=== PATIENT | female | born 2000 | race Caucasian/White ===

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

== ENCOUNTER 2022-10-14 19:25 | Emergency (ER) | payer OTHER, MEDICAID, SELFPAY ==
[2022-10-14 19:36] VITALS: BP 121/72; PULSE 97; RESP 15; TEMP 36.7; O2SAT 98; BMI 21.7
[2022-10-14 21:35] VITALS: PULSE 95; O2SAT 99
[2022-10-14 21:36] VITALS: BP 112/68; PULSE 95; O2SAT 99
[2022-10-14 22:00] VITALS: BP 98/56; PULSE 75; O2SAT 98
--- NOTE | 2022-10-14 22:13 | ED_ITS ---
HPI - General Adult General Chief complaint: Abdominal Pain Stated complaint: lower abd pain moving to back Time Seen by Provider: 10/14/22 21:27 Source: patient Mode of arrival: Ambulatory Limitations: no limitations History of Present Illness HPI narrative: Patient is a 22-year-old female who is here for evaluation of approximately 5 days of persistently worsening lower abdominal pain that at 1 point was radiat ing to her back. She actually has had this pain off and on for the past several weeks/months. It has just become more frequent recently. She denies any urinary symptoms. Has not had a menstrual cycle in the past several months. She is not on control. She does have a history of endometriosis. No prior abdominal surgeries. No change in bowel habits. She has had some nausea but no vomiting. Related Data Allergies Allergy/AdvReac Type Severity Reaction Status Date / Time No Known Drug Allergies Allergy Verified 10/14/22 19:36 Review of Systems Constitutional Constitutional: Reports system reviewed and no additional complaints, except as documented Gastrointestinal Gastrointestinal: Reports system reviewed and no additional complaints, except as documented Genitourinary Genitourinary: Reports system reviewed and no additional complaints, except as documented Integumentary/Breasts Skin/Breast: Reports system reviewed and no additional complaints, except as documented Patient History Medical History Healthy adult Social History lives independently: Yes Smoking Status: Unknown if ever smoked Smoking Status: Unknown if ever smoked alcohol intake frequency: holidays/special occasions only Substance Use Type: marijuana Exam Initial Vital Signs Initial Vital Signs: Vital Signs Temperature 98.1 F 10/14/22 19:36 Pulse Rate 97 H 10/14/22 19:36 Respiratory Rate 15 10/14/22 19:36 Blood Pressure 121/72 10/14/22 19:36 Pulse Oximetry 98 10/14/22 19:36 Oxygen Delivery Method 10/14/22 19:36 [facility] Head: normal to inspection and normocephalic Cardio Rate: regular rate GI Inspection: normal to inspection and non-distended Palpation: tender (Lower abdomen) Back/Spine/Pelvis Back: No CVA tenderness Extrem General: normal to inspection Course Orders Ordered: Discontinued Medications Ketorolac Tromethamine (Ketorolac 30 Mg/Ml Vial) 30 mg IM NOW ONE Stop: 10/14/22 22:23 Last Admin: 10/14/22 22:29 Dose: 30 mg Documented By: HERMANN Vital Signs Vital signs: Vital Signs - 8 hr 10/14/22 19:36 10/14/22 21:35 10/14/22 21:36 Temperature 98.1 F Pulse Rate 97 H 95 H 95 H Respiratory Rate 15 Blood Pressure 121/72 Pulse Oximetry 98 99 99 Oxygen Delivery Method Room Air Room Air Room Air 10/14/22 21:36 10/14/22 22:00 10/14/22 22:00 Temperature Pulse Rate 75 Respiratory Rate Blood Pressure 112/68 98/56 L Pulse Oximetry 98 Oxygen Delivery Method Room Air Medical Decision Making Differential Diagnosis Differential Diagnosis: Appendicitis, endometriosis, UTI, pyelo, , diverticulitis, bowel o Chronic Condition is having:: Mild excerbation Condition is at treatment goal?: Yes Lab Data Lab results reviewed: Yes I reviewed the patient's lab results. Labs: Point of Care Testing Test Results Negative Urine Dip Bedside Urine Glucose Negative Bedside Urine Bilirubin - Negative Bedside Urine Ketone - Negative Urine Specific [place] 1.010 Bedside Urine Occult Blood - Negative Bedside Urine pH 7.0 Bedside Urine Protein - Negative Bedside Urine Urobilinogen - Negative Bedside Urine Nitrite - Negative Bedside Urine Leukocytes - Negative Esterase Point of care testing: Point of Care Testing Test Results Negative Urine Dip Bedside Urine Glucose Negative Bedside Urine Bilirubin - Negative Bedside Urine Ketone - Negative Urine Specific [place] 1.010 Bedside Urine Occult Blood - Negative Bedside Urine pH 7.0 Bedside Urine Protein - Negative Bedside Urine Urobilinogen - Negative Bedside Urine Nitrite - Negative Bedside Urine Leukocytes - Negative Esterase [facility] Narrative Medical decision making narrative: Urinalysis shows no signs of infection. Low suspicion for pyelo. She does have a history of endometriosis. She has had the discomfort that she came in with today off and on for the past several months has just been worse over the past couple days. Her test is negative. She is not on control. No vaginal bleeding. She does have lower abdominal tenderness. Considered acute intra-abdominal surgical pathology to include appendicitis however her presenting symptoms are not consistent with this. Would not suspect appendicitis to be off and on for months. I do not feel that a CT scan is warranted today. I did offer to start her on control to see if this would help the endometriosis since she declined. She was given a shot of Toradol. Advised that she contact OB to discuss further evaluation treatment of her endometriosis. Discharge Plan Departure Patient Disposition: Home Clinical Impression: Abdominal pain, Endometriosis Instructions: DI for Endometriosis, DI for Abdominal Pain-Adult Activity Restrictions/Additional Instructions: I recommend that you contact an OB provider for a follow-up. You can contact them if you wish. It is also important that you follow-up with a primary doctor. Endometriosis most of the time response to anti-inflammatories. Return to the emergency department for new symptoms. Referrals: Debra Jones MD [Physician] - Stand Alone Forms: Patient Portal/API
[2022-10-14] MEDS: KETOROLAC 30 MG/ML VIAL IM (22:29)
== END 2022-10-14 22:39 | disposition home or self-care (01) ==
PROVIDERS: Emergency Provider Emergency Medicine
DX: R10.30 Lower abdominal pain, unspecified (principal); N80.9 Endometriosis, unspecified
CPT/HCPCS: 81003; 81025; 96372; 99283; J1885

== ENCOUNTER → 2022-10-27 10:52 | Outpatient (CLI) | payer OTHER, MEDICAID, SELFPAY ==
[2022-10-27 14:42] LABS: Urine N gonorrhoeae NOT DETECTED
[2022-10-27 14:43] LABS: Urine Chlamydia NOT DETECTED
== END ==
PROVIDERS: Visit Provider Obstetrics & Gynecology
DX: R10.9 Unspecified abdominal pain (principal); Z11.3 Encounter for screening for infections with a predominantly sexual mode of transmission
CPT/HCPCS: 87491; 87591

== ENCOUNTER → 2022-10-27 16:10 | Outpatient (CLI) | payer OTHER, MEDICAID, SELFPAY ==
--- NOTE | 2022-10-27 16:11 | DI.US.S_ITS ---
PROCEDURE: US PELVIC COMPLETE INDICATIONS: LLQ Pelvic Pain TECHNIQUE: Real-time scanning was performed of the pelvic organs, with image documentation. Additional endovaginal scanning was necessary due to incomplete visualization of the adnexal and endometrial structures by transabdominal scanning. COMPARISON: None. FINDINGS: The uterine body measures 6.4 x 3.2 x 4.1 centimeters. Normal endometrial thickness. No uterine mass. Normal size and appearance of both ovaries. No ovarian or adnexal mass. Several physiologic/follicular subcentimeter cysts present in both ovaries. Physiologic free fluid in the cul-de-sac. IMPRESSION: Normal study. We strive to produce accurate, complete, and clear reports of imaging services. To assist us in improving patient care, this report was composed using standard report templates and voice recognition software. Therefore, it may contain abnormal punctuation, insertions and/or omissions. Occasional wrong-word or sound-alike substitutions may occur. Though we review the report and make efforts to correct it, we do recommend that the report be read carefully in proper context to recognize any text inaccuracies. Dictated by: Haim Walker M.D. on 10/29/2022 at 9:09 Approved by: Haim Walker M.D. on 10/29/2022 at 9:14
== END ==
PROVIDERS: Referring Provider Obstetrics & Gynecology; Visit Provider Obstetrics & Gynecology
DX: N91.2 Amenorrhea, unspecified (principal); R10.2 Pelvic and perineal pain; R10.9 Unspecified abdominal pain; Z11.3 Encounter for screening for infections with a predominantly sexual mode of transmission; Z32.02 Encounter for pregnancy test, result negative
CPT/HCPCS: 76830; 76856; 81025; 87491; 87591

== ENCOUNTER → 2022-11-19 16:58 | Outpatient (CLI) | payer OTHER, MEDICAID, SELFPAY ==
[2022-11-24 04:12] LABS: Chlamydia trachomatis Negative (Negative); Mycoplasma genitalium Negative (Negative); Neisseria gonorrhoeae Negative (Negative)
== END ==
PROVIDERS: Visit Provider Obstetrics & Gynecology
DX: Z11.3 Encounter for screening for infections with a predominantly sexual mode of transmission (principal)
CPT/HCPCS: 87491; 87563; 87591

== ENCOUNTER → 2022-11-19 17:12 | Outpatient (CLI) | payer OTHER, MEDICAID, SELFPAY ==
[2022-11-19 18:13] LABS: Add Manual Diff / Slide Review NO; Basophils Absolute Auto 0 /uL (0-100); Basophils Percent Auto 0.3 % (0-2); Eosinophils Absolute Auto 0 /uL (0-450); Eosinophils Percent Auto 0.3 % (2-4); Hematocrit 37.9 % (36-46); Hemoglobin 12.5 g/dL (12.0-16.0); Lymphocytes Absolute Auto 2100 /uL (1100-4500); Mean Corpuscular HGB Conc 33.1 % (30-36); Mean Corpuscular Hemoglobin 27.3 PG (26-34); Mean Corpuscular Volume 82.5 fL (80-100); Monocytes Absolute Auto 600 /uL (0-900); Monocytes Percent Auto 6.9 % (3-14); Neutrophils Absolute Auto 6100 /uL (1500-7000); Neutrophils Percent Auto 68.5 % (50-75); Platelet Count 323 X10^3/uL (150-400); Red Blood Cell Count 4.59 X10^6/uL (4.0-5.2); Red Cell Distribution Width 14.6 % (11.6-14.8); White Blood Cell Count 8.9 X10^3/uL (4.5-11.0)
[2022-11-19 20:33] LABS: Erythrocyte Sedimentation Rate 1 MM/HR (0-20)
== END ==
PROVIDERS: Referring Provider Obstetrics & Gynecology; Visit Provider Obstetrics & Gynecology
DX: R10.2 Pelvic and perineal pain (principal); Z11.3 Encounter for screening for infections with a predominantly sexual mode of transmission
CPT/HCPCS: 36415; 85025; 85651; 87491; 87563; 87591

== ENCOUNTER 2022-12-10 06:45 | Day surgery (SDC) | payer OTHER, MEDICAID, SELFPAY ==
[2022-12-02 12:15] VITALS: BMI 21.1
[2022-12-10 07:10] VITALS: BP 115/64; PULSE 96; RESP 16; TEMP 36.9; O2SAT 100; BMI 46.0
[2022-12-10] MEDS: SCOPOLAMINE 1 PATCH TOP (07:19)
[2022-12-10] MEDS: LACTATED RINGERS 1,000 ML 42 ML IV (07:20)
[2022-12-10] MEDS: ACETAMINOPHEN IV 1,000 MG/100 ML VIAL 400 MG IV (07:20)
--- NOTE | 2022-12-10 07:40 | PM.PREOP ---
Pre-operative Note COVID-19 COVID-19 status: Not tested Criteria for continued procedure: Non-surgical alternatives not available or appropriate per current SOC Interval Note History & Physical reviewed/Exam performed by Physician: Yes Changes to H&P: No
--- NOTE | 2022-12-10 08:27 | SUR.OPER ---
Lithotomy on padded OR bed, head on pillow, arms secured on padded arm boards at <90 degrees abduction. Legs secured in padded yellow fins stirrups.
[2022-12-10] MEDS: BUPIVACAINE 0.25% (PF) 30 ML, EPINEPHrine 0.15 MG INJ (08:37)
[2022-12-10 08:59] VITALS: BP 131/53; PULSE 77; RESP 19; TEMP 36.5; O2SAT 100
[2022-12-10] MEDS: OXYCODONE IR 5 MG TABLET PO (09:04)
[2022-12-10] MEDS: ONDANSETRON 4 MG/2 ML INJ IV (09:04)
[2022-12-10 09:11] VITALS: BP 114/66; PULSE 69; RESP 11; O2SAT 99
--- NOTE | 2022-12-10 09:12 | PM.GYNOP.1 ---
Operative Date/Time/Diagnoses Date of procedure: 12/10/22 Time of procedure: 08:05 Pre-op diagnosis: Chronic pelvic pain Post-op diagnosis: other (Same as above; Normal pelvis) Procedure & Clinicians Procedure: Procedures Operation Date: 12/10/22 07:45 Actual Procedure Side Surgeon chase [id number] Laparoscopy Not Applicable Jamil Floyd MD Indications: Leeann is a 22-year-old G0, LMP August 03, 2022, who presents today for evaluation of a three-month history of right lower quadrant/right sided pelvic pain.? Menarche occurred at age 14 and in general she is had regular periods throughout her reproductive life thus far.? She is sexually active but does not currently use contraception.? She was on control pills up until June of 2022 when she discontinued them and had her final withdrawal period.? She had another period on August 03 2022 but has not had any bleeding since that time.? Serial tests have been negative.? Patient has been having sharp constant right lower quadrant/right sided pelvic pain for the last 3 months and is only obtained relief by taking hydrocodone which she has received from her ER visits and also from her mother.? Pain is constant with a dull component and then exacerbations which are sharp.? These do not appear to be related to her menses but she has a long history of primary dysmenorrhea.? Her symptoms are worsened with prolonged sitting or prolonged standing, or prolonged episodes of walking.? She has no GI or complaints.? Pain is always in the same spot but can radiate down the anterior aspect of her right thigh.? She states her dysmenorrhea has gradually increased over the years and she does have both introital and deep dyspareunia on occasion patient states that she is lost about 13 lb since February 2022.? Recent pelvic imaging thus far includes a pelvic ultrasound at [facility] on 10/27/2022 which showed: FINDINGS:? ?? The uterine body measures 6.4 x 3.2 x 4.1 centimeters.? Normal endometrial thickness.? No uterine mass.? Normal size and appearance of both ovaries.? No ovarian or adnexal mass.? Several physiologic/follicular subcentimeter cysts present in both ovaries.? Physiologic free fluid in the cul-de-sac.? ? IMPRESSION:? Normal study. Abdominopelvic CT performed at [facility] on 11/08/2022 showed previously noted small calcified gallstones in the gallbladder lumen without evidence of biliary obstruction or acute cholecystitis.? No other abnormalities were seen.? Pelvic ultrasound performed at that same ED visit showed the uterus to be normal in size at 2.9 x 4.2 x 6.4 cm.? The endometrium measures 6.6 mm in combined thickness.? The right ovary measures 1.9 x 4.1 x 4.0 cm and the left measures 3.5 by 3.0 x 3.5 cm.? No dominant cyst is seen in either ovary.? Normal-appearing arterial and venous waveforms are confirmed to each ovary.? Incidental note is made of a small left paraovarian cyst at the left adnexa. The nature the patient's pelvic pain is unclear at this point.? Her long history of primary dysmenorrhea is concerning for the possibility of an previously undiagnosed endometriosis with a right lower quadrant pain she is experiencing does not appear to be cyclic.? She does however have history of deep dyspareunia which is also concerning.? We discussed potential causes for her pelvic pain and methods of evaluating/treating those different possibilities.? A CBC and ESR obtained and are both normal.? After discussing all options, the patient wishes to proceed with diagnostic laparoscopy to evaluate for possible endometriosis and/or other potential causes of right lower quadrant/pelvic pain.? She presents today for preoperative evaluation, counseling, and consent. Surgeon: Jamil Floyd Anesthesia Type: General Operative Notes Findings: The anterior cul-de-sac is unremarkable with no scarring or endometrial implants noted. The uterus is normal in size and shape and retroverted. 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 The right tube and ovary were also normal in all respects. The ovarian fossas on both sides are free of adhesions or evidence of endometrial implants. The posterior cul-de-sac is also free of scarring or endometrial implants with only a small amount of physiologic peritoneal fluid present there. The cecum is mobile and the appendix is normal in all respects with no scarring, areas of thickening, mass or endometrial implants. Both gutters were visualized and there was peritoneal no abnormality present. The gallbladder appears to be normal as does the liver edge of both the left and right lobe. The diaphragms are also unremarkable. Closure Type: primary Specimen(s): none Estimated blood loss (mL): 0 Blood products transfused: none Procedure in detail: With the patient under satisfactory general anesthesia in the modified dorsal lithotomy position, the perineum, vagina, and abdomen were prepped and draped in the usual manner for laparoscopy. A pre-surgical safety time-out was then taken in accordance with [facility] OR protocols. A bivalve speculum was inserted in the vagina and a Zumi manipulator inserted into the endometrial cavity for uterine manipulation. The umbilicus was infiltrated with 0.5% Marcaine with epinephrine and a 1 cm transverse incision was made. A Veress needle was then used to insufflate the abdominal cavity with carbon dioxide and once insufflated a 5 mm trocar and sleeve were introduced through the umbilical incision. The presence of the sleeve in the abdominal cavity was confirmed laparoscopically and a 2nd and 3rd 5 mm port were placed in the left and right mid quadrants respectively. Using a 3 puncture technique the pelvis and abdomen were thoroughly inspected with the findings as noted above. With no demonstrable abnormality seen, the procedure was terminated by thinning of the pneumoperitoneum and removal of the laparoscopic ports. The incisions were then closed with 4-0 Monocryl using inverted interrupted stitches and skin glue was applied. Appropriate dressings were then applied and the patient was transferred to the PACU for a period of observation and recovery after having tolerated the procedure well. Post-operative Condition: stable Disposition: PACU Plan for aftercare: Routine postoperative care with 2 week postop follow-up scheduled.
[2022-12-10 09:13] VITALS: BP 114/64; PULSE 68; RESP 13; O2SAT 100
[2022-12-10 09:22] VITALS: BP 119/65; PULSE 71; RESP 20; O2SAT 98
== END 2022-12-10 09:45 | disposition home or self-care (01) ==
PROVIDERS: Referring Provider Obstetrics & Gynecology; Visit Provider Obstetrics & Gynecology
PROC: 0U5B4ZZ Destruction of Endometrium, Percutaneous Endoscopic Approach (ICD-10-PCS; CPT 58662; principal; 2022-12-10 07:45)
DX: R10.2 Pelvic and perineal pain (principal); Q50.5 Embryonic cyst of broad ligament; R18.8 Other ascites
CPT/HCPCS: 49320; J0131; J0171; J1100; J1885; J2250; J2405; J2704; J3010

== ENCOUNTER → 2023-01-19 15:31 | Outpatient (CLI) | payer OTHER, MEDICAID, SELFPAY ==
[2023-01-19 18:10] LABS: HCG Quantitative /Beta subunit < 2.4 mIU/mL
== END ==
PROVIDERS: Referring Provider Obstetrics & Gynecology; Visit Provider Obstetrics & Gynecology
DX: Z34.90 Encounter for supervision of normal pregnancy, unspecified, unspecified trimester (principal)
CPT/HCPCS: 36415; 84702

== ENCOUNTER 2023-01-19 16:06 | Emergency (ER) | payer OTHER, MEDICAID, SELFPAY ==
[2023-01-19 16:13] VITALS: BP 137/62; PULSE 86; RESP 16; TEMP 36.7; O2SAT 99; BMI 21.2
[2023-01-19 16:44] LABS: Add Manual Diff / Slide Review NO; Basophils Absolute Auto 0 /uL (0-100); Basophils Percent Auto 0.5 % (0-2); Eosinophils Absolute Auto 200 /uL (0-450); Eosinophils Percent Auto 1.8 % (2-4); Hematocrit 37.5 % (36-46); Hemoglobin 12.5 g/dL (12.0-16.0); Lymphocytes Absolute Auto 1800 /uL (1100-4500); Lymphocytes Percent Auto 19.6 % (25-40); Mean Corpuscular HGB Conc 33.3 % (30-36); Mean Corpuscular Hemoglobin 27.6 PG (26-34); Mean Corpuscular Volume 82.8 fL (80-100); Monocytes Absolute Auto 600 /uL (0-900); Monocytes Percent Auto 6.4 % (3-14); Neutrophils Absolute Auto 6500 /uL (1500-7000); Neutrophils Percent Auto 71.7 % (50-75); Platelet Count 315 X10^3/uL (150-400); Red Blood Cell Count 4.53 X10^6/uL (4.0-5.2); Red Cell Distribution Width 15.1 % (11.6-14.8); White Blood Cell Count 9.1 X10^3/uL (4.5-11.0)
[2023-01-19 16:55] LABS: Alanine Aminotransferase 16 IU/L (<35); Albumin 4.8 g/dL (3.5-5.0); Albumin Globulin Ratio 1.6 (1.0-2.8); Alkaline Phosphatase 58 U/L (38-126); Aspartate Aminotransferase 21 IU/L (14-36); BUN Creatinine Ratio 22.6 (6-22); Bilirubin Total 0.7 mg/dL (0.2-1.3); Blood Urea Nitrogen 14 mg/dL (7-17); Calcium 8.8 mg/dL (8.4-10.2); Carbon Dioxide 26 mmol/L (22-32); Chloride 103 mmol/L (98-107); Estimated Glomerular Filt Rate > 60 mL/min (>60); Glucose 111 mg/dL (70-100); HEMOLYSIS < 15 (0-50); Lipase 96 U/L (23-300); Potassium 3.8 mmol/L (3.4-5.1); Sodium 139 mmol/L (137-145); Total Protein 7.8 g/dL (6.3-8.2)
[2023-01-19 17:30] VITALS: BP 134/79; PULSE 98; O2SAT 99
[2023-01-19 18:00] VITALS: BP 115/58; PULSE 75
--- NOTE | 2023-01-19 18:08 | ED_ITS ---
HPI - Abdominal Pain General Chief Complaint: Abdominal Pain Stated Complaint: Abd pain, Nausea Time Seen by Provider: 01/19/23 18:08 Source: patient Mode of arrival: Ambulatory History of Present Illness HPI narrative: This is a 22-year-old female with history of chronic abdominal pain who is had ex lap in November of 2022 which did not show endometriosis or changes at that time. Patient has had reoccurrence of abdominal pain she describes it as lower pelvic bilaterally moving from [id number] for the past 4 days it has been constant, she states Tylenol seems to make it worse. Nothing seems to make it better. She denies radiation to her back or flank she denies fevers or chills. She is had some nausea but no vomiting. She denies diarrhea, constipation, melena or hematochezia. She denies any dysuria, urgency or frequency she denies any vaginal bleeding or discharge. She notes that she has not had a period since July. She notes she is sexually active states there is a possibility for STIs but thinks unlikely. Patient denies any other daily medications. She is tried hydrocodone at home with minimal improvement as well as naproxen [id number]. She denies other surgeries besides or ex lap. She does vape daily tobacco, occasional alcohol but rare, occasional marijuana but no other illicit. She is accompanied by her by her mother. Related Data Home Medications Medication Instructions Recorded Confirmed cetirizine 5 mg-pseudoephedrine ER 1 tab PO BID 12/07/22 12/23/22 120 mg tablet,extended release,12hr oxycodone-acetaminophen 5 mg-325 1 tab PO Q6H PRN Nausea And 12/07/22 12/23/22 mg tablet Vomiting ondansetron 4 mg disintegrating 4 mg PO PRN PRN Nausea 12/10/22 12/23/22 tablet Previous Rx's Medication Instructions Recorded oxycodone 5 mg tablet 5 mg PO PACUNOW PRN Mild or 12/10/22 moderate pain #20 tabs oxycodone 5 mg tablet 5 mg PO Q6H PRN pain #20 tabs 12/10/22 doxycycline hyclate 100 mg tablet 100 mg PO BID #28 tabs 01/19/23 metronidazole 500 mg tablet 500 mg PO BID #28 tabs 01/19/23 ondansetron 4 mg disintegrating 4 mg PO Q6H PRN nausea and 01/19/23 tablet vomiting #5 tabs oxycodone-acetaminophen 5 mg-325 1 tab PO Q6H PRN pain #10 tabs 01/19/23 mg tablet (Percocet) Allergies Allergy/AdvReac Type Severity Reaction Status Date / Time No Known Drug Allergies Allergy Verified 01/19/23 16:13 Review of Systems Review of Systems ROS Unobtainable: All systems reviewed & are unremarkable except as noted in HPI and below Patient History Medical History ADHD (~2004) Allergies (~2009) Ankle pain (~2018) Anxiety (~2009) Chronic cough (~2017) Eczema (~2002) Foot pain (~2013) Fracture (~2013) Gallstones Glaucoma (~2007) Healthy adult Heart murmur Heavy menstrual period (~2010) Migraines (~2015) Optic nerve disorder Painful menstrual periods (~2010) Raynaud's disease Family History Grandmother Breast cancer Social History household members: significant other lives independently: Yes Smoking Status: Current every day smoker alcohol intake: current Smoking Status: Current every day smoker tobacco type: vaping alcohol intake frequency: holidays/special occasions only Substance Use Type: marijuana Exam Narrative Exam Narrative: GENERAL: Alert and oriented x three, thin well-appearing female in mild distress. HEENT: Head normocephalic, atraumatic, EOMI, pupils reactive, face symmetric, moist mucous membranes NECK: Supple, full range of motion CARDIOVASCULAR: Regular rate and rhythm without murmurs, rubs or gallops. RESPIRATORY: Breath sounds equal bilaterally, no wheezes rales or rhonchi. ABDOMEN: Soft, generalized tenderness. Normoactive bowel sounds all 4 quadrants. No guarding or rebound, rigidity, no mass, nondistended. No skin changes. : No CVA tenderness bilaterally. Female: externa vaginal examl normal, no vaginal bleeding, patient has thick whitish discharge, without odor. Positive for cervical motion tenderness, normal speculum exam, no adnexal tendernes s/mass. Bimanual exam is normal, no enlarged or tender uterus. Non-gravid. EXTREMITIES: Normal range of motion, no clubbing or edema. Neurovascularly intact NEUROLOGICAL: Cranial nerves II through XII grossly intact. Moving all extremities SKIN: Warm, dry, no petechiae, no rashes or lesions. Initial Vital Signs Initial Vital Signs: Vital Signs Temperature 98.0 F 01/19/23 16:13 Pulse Rate 86 01/19/23 16:13 Respiratory Rate 16 01/19/23 16:13 Blood Pressure 137/62 01/19/23 16:13 Pulse Oximetry 99 01/19/23 16:13 Oxygen Delivery Method Room Air 01/19/23 16:13 Course Orders Ordered: Discontinued Medications Ceftriaxone Sodium 1,000 mg/ (Sodium Chloride) 100 mls @ 200 mls/hr IV NOW ONE Stop: 01/19/23 18:47 Last Infusion: 01/19/23 19:37 Dose: 0 mls/hr Documented By: Admin: 01/19/23 19:02 Dose: 200 mls/hr Documented By: ROBSON Ketorolac Tromethamine (Ketorolac 30 Mg/Ml Vial) 15 mg IV NOW ONE Stop: 01/19/23 18:17 Last Admin: 01/19/23 18:27 Dose: 15 mg Documented By: ROBSON Morphine Sulfate (Morphine 4 Mg/Ml Inj) 4 mg IV NOW ONE Stop: 01/19/23 18:50 Last Admin: 01/19/23 19:00 Dose: 4 mg Documented By: ROBSON Ondansetron HCl (Ondansetron 4 Mg/2 Ml Inj) 4 mg IV NOW PRN PRN Reason: Nausea And Vomiting Vital Signs Vital signs: Vital Signs - 8 hr 01/19/23 16:13 01/19/23 18:00 01/19/23 17:30 Temperature 98.0 F Pulse Rate 86 75 98 H Respiratory Rate 16 Blood Pressure 137/62 115/58 L 134/79 Pulse Oximetry 99 99 Oxygen Delivery Method Room Air Room Air MDM - Abdominal Pain Lab Data 01/19/23 16:29 01/19/23 16:29 Labs: Lab Results 01/19/23 01/19/23 01/19/23 Range/Units 16:29 16:29 18:44 WBC 9.1 (4.5-11.0) X10^3/uL RBC 4.53 (4.0-5.2) X10^6/uL Hgb 12.5 (12.0-16.0) g/dL Hct 37.5 (36-46) % MCV 82.8 (80-100) fL MCH 27.6 (26-34) PG MCHC 33.3 (30-36) % RDW 15.1 H (11.6-14.8) % Plt Count 315 (150-400) X10^3/uL Neut % (Auto) 71.7 (50-75) % Lymph % (Auto) 19.6 L (25-40) % [place] % (Auto) 6.4 (3-14) % Eos % (Auto) 1.8 L (2-4) % Baso % (Auto) 0.5 (0-2) % Neut # (Auto) 6500 (5818-3626) /uL Lymph # (Auto) 1800 (0236-1889) /uL [place] # (Auto) 600 (0-900) /uL Eos # (Auto) 200 (0-450) /uL Baso # (Auto) 0 (0-100) /uL Sodium 139 (137-145) mmol/L Potassium 3.8 (3.4-5.1) mmol/L Chloride 103 (98-107) mmol/L Carbon Dioxide 26 (22-32) mmol/L BUN 14 (7-17) mg/dL Creatinine 0.62 (0.52-1.04) mg/dL Estimated GFR > 60 (>60) mL/min BUN/Creatinine Ratio 22.6 H (6-22) Glucose 111 H (70-100) mg/dL Calcium 8.8 (8.4-10.2) mg/dL Total Bilirubin 0.7 (0.2-1.3) mg/dL AST 21 (14-36) IU/L ALT 16 (<35) IU/L Alkaline Phosphatase 58 (38-126) U/L Total Protein 7.8 (6.3-8.2) g/dL Albumin 4.8 (3.5-5.0) g/dL Globulin 3.0 (1.7-4.1) g/dL Albumin/Globulin Ratio 1.6 (1.0-2.8) Lipase 96 (23-300) U/L C.trachomatis Ampl DNA Negative (Negative) M. genitalium (PCR) Negative (Negative) N.gonorrhoeae Ampl DNA Negative (Negative) Point of care testing: Point of Care Testing Test Results Negative Urine Dip Bedside Urine Glucose Negative Bedside Urine Bilirubin - Negative Bedside Urine Ketone - Negative Urine Specific [place] 1.010 Bedside Urine Occult Blood - Negative Bedside Urine pH 8.0 Bedside Urine Protein - Negative Bedside Urine Urobilinogen - Negative Bedside Urine Nitrite - Negative Bedside Urine Leukocytes - Negative Esterase MDM Narrative Medical decision making narrative: This is a year old female with acute on chronic abdominal pain, point of care urine and are negative. She complains of lower pelvic pain but is generalized tenderness overall. White count is negative RDW is 15, lymphocytes are low at 19. Patient's glucose is 111, CMP does not show other changes to electrolytes, liver functions or lipase. Patient has had ex lap to evaluate for endometriosis which was negative in November with no clear cause for abdominal pain found. Patient and I discussed plan for pelvic exam if this is negative CT abdomen pelvis. Pelvic exam was positive patient does have some discharge and cervical motion tenderness. Discussed with patient plan for antibiotics, patient's cultures are pending sudden cover broad-spectrum. Patient was encouraged to follow up for results and we will hold off on CT at this time as PID seems most likely source of patient's symptoms today. Discussed return precautions all questions answered. Discharge Plan Departure Patient Disposition: Home Clinical Impression: PID (pelvic inflammatory disease) Instructions: DI for Pelvic Inflammatory Disease (PID) Activity Restrictions/Additional Instructions: Your evaluation today is suspicious for PID or infection of the cervix and uterus, if your symptoms are not improving after 48-72 hours of antibiotics I would recommend follow-up with your provider. You received dose of antibiotic here in the department but also take the prescription prescribed until completed. These medications can sometimes make you feel nauseated there is a prescription for antinausea medication included. Do not drink alcohol with the metronidazole or Flagyl it will make you vomit. There is also a prescription for narcotic pain medication. This medication can make you sleepy do not drive, perform hazardous activities or make any major decisions while taking it. This medication will make you constipated please take a stool softener once to twice daily until stools are soft and regular. No sexual activity for a week until after these medications or completed. Please call to follow up her cultures or follow up with your physician to follow up these culture results. Prescription sent to [facility] in [place]. Please return for fevers, rapidly worsening abdominal back or flank pain, persistent vomiting, black or bloody stools, lightheadedness or passing out or other new or concerning changes. Prescriptions: New doxycycline hyclate 100 mg tablet 100 mg PO BID Qty: 28 0RF metronidazole 500 mg tablet 500 mg PO BID Qty: 28 0RF ondansetron 4 mg tablet,disintegrating 4 mg PO Q6H PRN (Reason: nausea and vomiting) Qty: 5 0RF oxycodone-acetaminophen [Percocet] 5-325 mg tablet 1 tab PO Q6H PRN (Reason: pain) Qty: 10 0RF No Action cetirizine-pseudoephedrine 5-120 mg tablet extended release 12 hr 1 tab PO BID oxycodone-acetaminophen 5-325 mg tablet 1 tab PO Q6H PRN (Reason: Nausea And Vomiting) ondansetron 4 mg tablet,disintegrating 4 mg PO PRN PRN (Reason: Nausea) oxycodone 5 mg Tablet 5 mg PO PACUNOW PRN (Reason: Mild or moderate pain) Qty: 20 0RF oxycodone 5 mg tablet 5 mg PO Q6H PRN (Reason: pain) Qty: 20 0RF Referrals: Miscellaneous,Doctor, MD [Primary Care Provider] - Stand Alone Forms: Patient Portal/API
[2023-01-19] MEDS: KETOROLAC 30 MG/ML VIAL 15 MG IV (18:27)
[2023-01-19] MEDS: MORPHINE 4 MG/ML INJ IV (19:00)
[2023-01-19] MEDS: cefTRIAXone 1,000 MG in SODIUM CHLORIDE 0.9% 100 ML 200 MG IV (19:02)
[2023-01-19 19:23] VITALS: BP 112/69; PULSE 80; RESP 16; O2SAT 99
[2023-01-19 19:48] VITALS: BP 115/70; PULSE 77; RESP 18; TEMP 36.6; O2SAT 99
[2023-01-23 05:11] LABS: Chlamydia trachomatis Negative (Negative); Mycoplasma genitalium Negative (Negative); Neisseria gonorrhoeae Negative (Negative)
== END 2023-01-19 19:50 | disposition home or self-care (01) ==
PROVIDERS: Emergency Medicine; Emergency Provider Emergency Medicine
DX: N73.9 Female pelvic inflammatory disease, unspecified (principal); Z34.90 Encounter for supervision of normal pregnancy, unspecified, unspecified trimester
CPT/HCPCS: 36415; 80053; 81003; 81025; 83690; 84702; 85025; 87070; 87077; 87186; 87205; 87210; 87491; 87563; 87591; 96365; 96375; 99284; J0696; J1885; J2270

== ENCOUNTER 2023-03-09 12:22 | Emergency (ER) | payer OTHER, MEDICAID, SELFPAY ==
[2023-03-09 12:25] VITALS: BP 124/69; PULSE 97; RESP 14; TEMP 36.6; O2SAT 99; BMI 23.8
--- NOTE | 2023-03-09 13:48 | ED.ABDPAIN ---
HPI - Abdominal Pain General Chief Complaint: Abdominal Pain Stated Complaint: Abd pain Time Seen by Provider: 03/09/23 12:41 Source: patient Mode of arrival: Ambulatory History of Present Illness HPI narrative: 22-year-old female daily smoker with history of pelvic inflammatory disease, abdominal pain, endometriosis presents with her significant other and a chief complaint of generalized abdominal pain that started rather suddenly last night. She states it is severe in her epigastrium and radiates to her back. She states that she had eaten cheesy food for dinner and historically does have an intolerance to lactose but generally more ice cream and then she is. She states that her pain is also made worse when she moves and improves with rest. She has nausea but denies any vomiting. She states this feels significantly different than when she was seen and evaluated by gynecology a few months ago. She denies dysuria, frequency or urgency. She denies any vaginal bleeding or discharge Related Data Previous Rx's Medication Instructions Recorded hydrocodone 5 mg-acetaminophen 325 1 tab PO Q4-6H PRN pain #10 tabs 03/09/23 mg tablet ondansetron 4 mg disintegrating 4 mg PO TID-QID PRN nausea and 03/09/23 tablet vomiting #10 tabs Allergies Allergy/AdvReac Type Severity Reaction Status Date / Time No Known Drug Allergies Allergy Verified 03/09/23 12:29 Review of Systems Review of Systems Narrative: GENERAL: Denies chills, fatigue, malaise, fever, sweats. HEENT: Denies sinus pain, ear pain, sore throat, difficulty swallowing, dizziness. RESPIRATORY: Denies dyspnea, cough, wheezing, hemoptysis, sputum. CARDIOVASCULAR: Denies chest pain, palpitations, orthopnea, edema, GASTROINTESTINAL: See HPI see HPI MUSCULOSKELETAL: denies weakness, joint pain, or bony pain SKIN: Denies rash, skin lesions, or other NEUROLOGIC: Denies weakness, headache, numbness, change in speech, confusion, seizures, incoordination. PSYCHIATRIC: No concerning psychosocial issues. 12 point review of systems is negative except for those stated above Patient History Medical History ADHD (~2004) Allergies (~2009) Ankle pain (~2018) Anxiety (~2009) Chronic cough (~2017) Eczema (~2002) Foot pain (~2013) Fracture (~2013) Gallstones Glaucoma (~2007) Healthy adult Heart murmur Heavy menstrual period (~2010) Migraines (~2015) Optic nerve disorder Painful menstrual periods (~2010) Raynaud's disease Family History Grandmother Breast cancer Social History household members: significant other lives independently: Yes Smoking Status: Current every day smoker alcohol intake: current Smoking Status: Current every day smoker tobacco type: vaping alcohol intake frequency: holidays/special occasions only Substance Use Type: marijuana Exam Narrative Exam Narrative: GENERAL: [22] year old patient appears stated age. Well-developed patient, in mild distress. HEAD: Atraumatic. Normocephalic. EYES: Pupils equal round and reactive. Extraocular motions intact. No scleral icterus. No injection or drainage. ENT: Nose without bleeding, purulent drainage. Throat without erythema, tonsillar hypertrophy or exudate. Airway patent. NECK: Trachea midline. Non tender CARDIOVASCULAR: Regular rate and rhythm without murmurs, gallops, or rubs. RESPIRATORY: Clear to auscultation. Breath sounds equal bilaterally. No wheezes, rales, or rhonchi. GASTROINTESTINAL: Abdomen soft, tender in the epigastrium, negative Paula's, nondistended. EXTREMITIES: No edema or joint tenderness. BACK: Nontender without deformity or crepitance. No flank tenderness. NEURO: AOx3. SKIN: No rash or erythema of visible areas Initial Vital Signs Initial Vital Signs: Vital Signs Temperature 97.8 F 03/09/23 12:25 Pulse Rate 97 H 03/09/23 12:25 Respiratory Rate 14 03/09/23 12:25 Blood Pressure 124/69 03/09/23 12:25 Pulse Oximetry 99 03/09/23 12:25 Oxygen Delivery Method Room Air 03/09/23 12:25 Course Orders Ordered: Discontinued Medications Hydrocodone Bitart/Acetaminophen (Hydrocodone/Acet 5/325 Tablet) 1 tab PO NOW ONE Stop: 03/09/23 15:51 Last Admin: 03/09/23 15:59 Dose: 1 tab Documented By: NR Hydromorphone HCl (Hydromorphone 0.5 Mg Inj) 0.5 mg IV NOW ONE Stop: 03/09/23 14:09 Last Admin: 03/09/23 14:28 Dose: 0.5 mg Documented By: NR Sodium Chloride (Normal Saline 0.9%) 1,000 mls @ 1,000 mls/hr IV BOLUS ONE Stop: 03/09/23 15:07 Last Infusion: 03/09/23 15:22 Dose: 0 mls/hr Documented By: Admin: 03/09/23 14:28 Dose: 1,000 mls/hr Documented By: NR Ondansetron HCl (Ondansetron 4 Mg/2 Ml Inj) 4 mg IV NOW ONE Stop: 03/09/23 14:09 Last Admin: 03/09/23 14:28 Dose: 4 mg Documented By: NR Vital Signs Vital signs: Vital Signs - 8 hr 03/09/23 12:25 Temperature 97.8 F Pulse Rate 97 H Respiratory Rate 14 Blood Pressure 124/69 Pulse Oximetry 99 Oxygen Delivery Method Room Air MDM - Abdominal Pain Lab Data 03/09/23 14:20 03/09/23 14:20 Labs: Lab Results 03/09/23 03/09/23 03/09/23 Range/Units 14:20 14:20 15:12 WBC 12.5 H (4.5-11.0) X10^3/uL RBC 4.44 (4.0-5.2) X10^6/uL Hgb 11.9 L (12.0-16.0) g/dL Hct 36.9 (36-46) % MCV 83.1 (80-100) fL MCH 26.8 (26-34) PG MCHC 32.3 (30-36) % RDW 14.7 (11.6-14.8) % Plt Count 286 (150-400) X10^3/uL Neut % (Auto) 78.2 H (50-75) % Lymph % (Auto) 15.1 L (25-40) % [place] % (Auto) 6.0 (3-14) % Eos % (Auto) 0.5 L (2-4) % Baso % (Auto) 0.2 (0-2) % Neut # (Auto) 9700 H (3982-9043) /uL Lymph # (Auto) 1900 (0617-0918) /uL [place] # (Auto) 800 (0-900) /uL Eos # (Auto) 100 (0-450) /uL Baso # (Auto) 0 (0-100) /uL Sodium 139 (137-145) mmol/L Potassium 3.8 (3.4-5.1) mmol/L Chloride 105 (98-107) mmol/L Carbon Dioxide 27 (22-32) mmol/L BUN 12 (7-17) mg/dL Creatinine 0.69 (0.52-1.04) mg/dL Estimated GFR > 60 (>60) mL/min BUN/Creatinine Ratio 17.4 (6-22) Glucose 79 (70-100) mg/dL Calcium 9.1 (8.4-10.2) mg/dL Total Bilirubin 0.6 (0.2-1.3) mg/dL AST 18 (14-36) IU/L ALT 15 (<35) IU/L Alkaline Phosphatase 48 (38-126) U/L Total Protein 7.3 (6.3-8.2) g/dL Albumin 4.5 (3.5-5.0) g/dL Globulin 2.8 (1.7-4.1) g/dL Albumin/Globulin Ratio 1.6 (1.0-2.8) Lipase 52 (23-300) U/L Ur Chlamydia DNA (PCR) Not detected N gonorrhoeae DNA (PCR) Not detected Point of care testing: Point of Care Testing Test Results Negative Urine Dip Bedside Urine Glucose Negative Bedside Urine Bilirubin - Negative Bedside Urine Ketone - Negative Urine Specific [place] 1.010 Bedside Urine Occult Blood - Negative Bedside Urine pH 6.0 Bedside Urine Protein - Negative Bedside Urine Urobilinogen - Negative Bedside Urine Nitrite - Negative Bedside Urine Leukocytes - Negative Esterase MDM Narrative Medical decision making narrative: [22] year old patient presents with abdominal pain largely in the epigastrium with radiation to her back after eating Multiple etiologies for patient's symptoms considered including, but not limited to: [Pancreatitis versus gallbladder disease versus gastritis versus esophageal spasm versus endometriosis versus PID versus other] Prior Charts reviewed in our EMR Primary Historian: patient Labs reviewed and interpreted by myself: Slight elevation in white blood cells at 12,000, no signs of anemia, no true left shift though slight increase in neutrophil%, electrolytes including LFTs, bilirubin and lipase all within normal. Imaging reviewed: Abdominal ultrasound notes gallstones but no sonographic signs of cholecystitis, no biliary dilatation Patient's symptoms improved over duration of stay with above-stated therapies. Findings and discharge diagnosis discussed with patient/family followed by verbalization of understanding Return precautions discussed with patient/family whom verbalize understanding of diagnosis and plan Discharge Plan Departure Patient Disposition: Home Clinical Impression: Gallstones Instructions: DI for Abdominal Pain-Adult Activity Restrictions/Additional Instructions: *You have been diagnosed with [abdominal pain likely due to gallstones] * As we discussed your history and physical exam as well as labs and imaging are very reassuring. There is no evidence of any severe diagnoses that would require a specific or immediate intervention. Pelvic swabs are pending and we will call you if any abnormal findings are noted *What to do: *Please continue to take your regular medications as directed. [x ] New medication prescriptions sent to your pharmacy: [ [facility]] *Please follow up with your primary care provider in 2-3 days, call for an appointment. Let them know you were seen in the Emergency Department and that we ask that you be seen in follow up. We will electronically transmit a record of today's note if your PCP is in our system *Please consider a clear liquid diet for the next 24-48 hours and then slowly advance to regular as tolerated. Also, try to avoid alcohol, nicotine, caffeine, spicy, acidic or fatty foods as this may worsen your symptoms *If you do not have a primary care provider please contact the [facility] Resource line at [phone]. They will ask some questions about your medical history and help get you set up with a doctor in the community. *Return to Emergency Department if you should have any new, worsening or concerning symptoms, such as [fever greater than 101 F, shaking chills, worsening pain, persistent vomiting or other bothersome symptoms] Prescriptions: New hydrocodone-acetaminophen 5-325 mg tablet 1 tab PO Q4-6H PRN (Reason: pain) Qty: 10 0RF ondansetron 4 mg tablet,disintegrating 4 mg PO TID-QID PRN (Reason: nausea and vomiting) Qty: 10 0RF Referrals: Miscellaneous,Doctor, MD [Primary Care Provider] - Stand Alone Forms: Patient Portal/API
--- NOTE | 2023-03-09 14:09 | DI.US.S_ITS ---
PROCEDURE: US ABDOMEN LIMITED INDICATIONS: EPIGASTRIC PAIN RADIATING TO BACK TECHNIQUE: Real-time focused scanning was performed of the abdomen, with image documentation. COMPARISON: None. FINDINGS: The liver is normal in size and demonstrates no focal lesions. Three mobile gallstones are seen, with the largest measuring up to 8 mm. The gallbladder wall is not thickened, measuring 3 mm or less. No specific pericholecystic fluid is seen. The sonographic Paula sign is negative. There is no biliary dilatation, the common bile duct measures 3-4 mm. No significant pancreatic abnormality is seen on these images. IMPRESSION: Gallstones are seen, yet without additional sonographic signs of cholecystitis. Negative for biliary dilatation. Please correlate with physical examination findings, patient presentation, and laboratory values. Dictated by: Kris Smith M.D. on 03/09/2023 at 13:50 Approved by: Kris Smith M.D. on 03/09/2023 at 13:51
[2023-03-09] MEDS: HYDROMORPHONE 0.5 MG INJ IV (14:28)
[2023-03-09] MEDS: ONDANSETRON 4 MG/2 ML INJ IV (14:28)
[2023-03-09] MEDS: SODIUM CHLORIDE 0.9% 1,000 ML 1000 ML IV (14:28)
[2023-03-09 14:33] LABS: Add Manual Diff / Slide Review NO; Basophils Absolute Auto 0 /uL (0-100); Basophils Percent Auto 0.2 % (0-2); Eosinophils Absolute Auto 100 /uL (0-450); Eosinophils Percent Auto 0.5 % (2-4); Hematocrit 36.9 % (36-46); Hemoglobin 11.9 g/dL (12.0-16.0); Lymphocytes Absolute Auto 1900 /uL (1100-4500); Lymphocytes Percent Auto 15.1 % (25-40); Mean Corpuscular HGB Conc 32.3 % (30-36); Mean Corpuscular Hemoglobin 26.8 PG (26-34); Mean Corpuscular Volume 83.1 fL (80-100); Monocytes Absolute Auto 800 /uL (0-900); Neutrophils Absolute Auto 9700 /uL (1500-7000); Neutrophils Percent Auto 78.2 % (50-75); Platelet Count 286 X10^3/uL (150-400); Red Blood Cell Count 4.44 X10^6/uL (4.0-5.2); Red Cell Distribution Width 14.7 % (11.6-14.8); White Blood Cell Count 12.5 X10^3/uL (4.5-11.0)
[2023-03-09 14:40] LABS: Alanine Aminotransferase 15 IU/L (<35); Albumin 4.5 g/dL (3.5-5.0); Albumin Globulin Ratio 1.6 (1.0-2.8); Alkaline Phosphatase 48 U/L (38-126); Aspartate Aminotransferase 18 IU/L (14-36); BUN Creatinine Ratio 17.4 (6-22); Bilirubin Total 0.6 mg/dL (0.2-1.3); Blood Urea Nitrogen 12 mg/dL (7-17); Calcium 9.1 mg/dL (8.4-10.2); Carbon Dioxide 27 mmol/L (22-32); Chloride 105 mmol/L (98-107); Estimated Glomerular Filt Rate > 60 mL/min (>60); Globulin 2.8 g/dL (1.7-4.1); Glucose 79 mg/dL (70-100); HEMOLYSIS < 15 (0-50); Lipase 52 U/L (23-300); Potassium 3.8 mmol/L (3.4-5.1); Sodium 139 mmol/L (137-145); Total Protein 7.3 g/dL (6.3-8.2)
[2023-03-09] MEDS: HYDROCODONE/ACET 5/325 TABLET 1 TAB PO (15:59)
[2023-03-09 16:44] LABS: Urine N gonorrhoeae NOT DETECTED
[2023-03-09 16:46] LABS: Urine Chlamydia NOT DETECTED
== END 2023-03-09 16:11 | disposition home or self-care (01) ==
PROVIDERS: Emergency Provider Emergency Medicine
DX: K80.20 Calculus of gallbladder without cholecystitis without obstruction (principal)
CPT/HCPCS: 36415; 76705; 80053; 81003; 81025; 83690; 85025; 87070; 87205; 87210; 87252; 87491; 87591; 96361; 96374; 96375; 99284; J1170; J2405

== ENCOUNTER 2023-03-12 12:57 | Emergency (ER) | payer OTHER, MEDICAID, SELFPAY ==
[2023-03-12] VITALS (12 sets, daily range): BP systolic 100–130; BP diastolic 51–65; PULSE 76–94; RESP 18; TEMP 36.9; O2SAT 98–100; BMI 24.0
[2023-03-12] MEDS: ONDANSETRON 4 MG/2 ML INJ IV ×2 (13:56→15:34)
[2023-03-12 13:59] LABS: Add Manual Diff / Slide Review NO; Basophils Absolute Auto 0 /uL (0-100); Basophils Percent Auto 0.3 % (0-2); Eosinophils Absolute Auto 0 /uL (0-450); Eosinophils Percent Auto 0.4 % (2-4); Hematocrit 36.2 % (36-46); Hemoglobin 11.9 g/dL (12.0-16.0); Lymphocytes Absolute Auto 1400 /uL (1100-4500); Lymphocytes Percent Auto 11.6 % (25-40); Mean Corpuscular HGB Conc 32.9 % (30-36); Mean Corpuscular Hemoglobin 27.1 PG (26-34); Mean Corpuscular Volume 82.4 fL (80-100); Monocytes Absolute Auto 700 /uL (0-900); Monocytes Percent Auto 6.1 % (3-14); Neutrophils Absolute Auto 9500 /uL (1500-7000); Neutrophils Percent Auto 81.6 % (50-75); Platelet Count 307 X10^3/uL (150-400); Red Cell Distribution Width 15.1 % (11.6-14.8); White Blood Cell Count 11.7 X10^3/uL (4.5-11.0)
[2023-03-12 14:15] LABS: Alanine Aminotransferase 17 IU/L (<35); Albumin 4.6 g/dL (3.5-5.0); Albumin Globulin Ratio 1.5 (1.0-2.8); Alkaline Phosphatase 50 U/L (38-126); Aspartate Aminotransferase 20 IU/L (14-36); BUN Creatinine Ratio 16.4 (6-22); Bilirubin Total 0.6 mg/dL (0.2-1.3); Blood Urea Nitrogen 10 mg/dL (7-17); Calcium 9.4 mg/dL (8.4-10.2); Carbon Dioxide 25 mmol/L (22-32); Chloride 105 mmol/L (98-107); Estimated Glomerular Filt Rate > 60 mL/min (>60); Glucose 122 mg/dL (70-100); HEMOLYSIS < 15 (0-50); Lipase 55 U/L (23-300); Potassium 3.9 mmol/L (3.4-5.1); Sodium 140 mmol/L (137-145); Total Protein 7.6 g/dL (6.3-8.2)
--- NOTE | 2023-03-12 14:43 | ED_ITS ---
HPI - Abdominal Pain General Chief Complaint: Abdominal Pain Stated Complaint: extremely bad abdominal pain, blood in stool Time Seen by Provider: 03/12/23 14:43 Source: patient Mode of arrival: Ambulatory Limitations: no limitations History of Present Illness HPI narrative: This is a healthy 22-year-old female with history of ovarian, IBS, chronic abdominal pain with prior ex lap to evaluate for endometriosis which she states was negative. Patient presents with abdominal pain she states on the she was here for more right upper quadrant pain that has been persistent in his is worse at this time. She states it is a little bit more generalized at this time. She is had no felt a little chilled. Had a temperature of 99? F at home, she is had nausea but no vomiting. No chest pain or shortness of breath. No diarrhea or constipation. She states she will feel like she needs to have a bowel movement but a small amount of bright red blood will come out that is mucousy. Patient has not had any diarrhea or constipation regularly. No melanotic stools. Denies any prior blood in her stools. No vaginal bleeding or discharge. No dysuria, urgency or frequency. Patient states she was seen found to have gallstones was supposed to be referred to general surgery. Told to come back if she had worsening changes presents as pain is much worse. No oral medications for pain today. She denies any surgeries besides and ex lap to evaluate for endometriosis and was told the only thing was found was ovarian cyst. Denies any daily medications. Vapes nicotine, denies alcohol, does use THC denies other recreational drugs. Related Data Previous Rx's Medication Instructions Recorded hydrocodone 5 mg-acetaminophen 325 1 tab PO Q4-6H PRN pain #10 tabs 03/09/23 mg tablet ondansetron 4 mg disintegrating 4 mg PO TID-QID PRN nausea and 03/09/23 tablet vomiting #10 tabs oxycodone 5 mg tablet 5 mg PO Q6H PRN pain #10 tabs 03/12/23 Allergies Allergy/AdvReac Type Severity Reaction Status Date / Time No Known Drug Allergies Allergy Verified 03/09/23 12:29 Review of Systems Review of Systems ROS Unobtainable: All systems reviewed & are unremarkable except as noted in HPI and below Patient History Medical History ADHD (~2004) Allergies (~2009) Ankle pain (~2018) Anxiety (~2009) Chronic cough (~2017) Eczema (~2002) Foot pain (~2013) Fracture (~2013) Gallstones Glaucoma (~2007) Healthy adult Heart murmur Heavy menstrual period (~2010) Migraines (~2015) Optic nerve disorder Painful menstrual periods (~2010) Raynaud's disease Family History Grandmother Breast cancer Social History household members: significant other lives independently: Yes Smoking Status: Current every day smoker alcohol intake: current Smoking Status: Current every day smoker tobacco type: vaping alcohol intake frequency: holidays/special occasions only Substance Use Type: marijuana Exam Narrative Exam Narrative: GENERAL: Alert and oriented x three, female in moderate distress. HEENT: Head normocephalic, atraumatic, EOMI, pupils reactive, face symmetric, moist mucous membranes NECK: Supple, full range of motion CARDIOVASCULAR: Regular rate and rhythm without murmurs, rubs or gallops. RESPIRATORY: Breath sounds equal bilaterally, no wheezes rales or rhonchi. ABDOMEN: Soft, generalized tenderness Normoactive bowel sounds all 4 quadrants. No guarding or rebound, rigidity, no mass, nondistended. : No CVA tenderness EXTREMITIES: Normal range of motion, no clubbing or edema. Neurovascularly intact NEUROLOGICAL: Cranial nerves II through XII grossly intact. Moving all extremit ies SKIN: Warm, dry, no petechiae, no rashes or lesions. Initial Vital Signs Initial Vital Signs: Vital Signs Temperature 98.4 F 03/12/23 13:01 Pulse Rate 94 H 03/12/23 13:01 Respiratory Rate 18 03/12/23 13:01 Blood Pressure 115/65 03/12/23 13:01 Pulse Oximetry 100 03/12/23 13:01 Oxygen Delivery Method Room Air 03/12/23 13:01 Course Orders Ordered: ED Orders 03/12/23 13:45 Complete Blood Count AUTO DIFF Stat Comprehensive Metabolic Panel Stat Lipase Stat 03/12/23 14:50 CT abdomen pelvis w con Stat Discontinued Medications Sodium Chloride (Normal Saline 0.9%) 1,000 mls @ 1,000 mls/hr IV BOLUS ONE Stop: 03/12/23 15:49 Last Infusion: 03/12/23 16:13 Dose: 0 mls/hr Documented By: Admin: 03/12/23 15:34 Dose: 1,000 mls/hr Documented By: CINTIA Ketorolac Tromethamine (Ketorolac 30 Mg/Ml Vial) 15 mg IV NOW ONE Stop: 03/12/23 14:51 Last Admin: 03/12/23 15:34 Dose: 15 mg Documented By: CINTIA Morphine Sulfate (Morphine 4 Mg/Ml Inj) 4 mg IV NOW ONE Stop: 03/12/23 16:13 Last Admin: 03/12/23 16:20 Dose: 4 mg Documented By: LLOYD Morphine Sulfate (Morphine 4 Mg/Ml Inj) 4 mg IV NOW ONE Stop: 03/12/23 16:43 Last Admin: 03/12/23 16:54 Dose: 4 mg Documented By: LLOYD Ondansetron HCl (Ondansetron 4 Mg Odt) 4 mg PO NOW PRN PRN Reason: Nausea And Vomiting Last Admin: 03/12/23 16:54 Dose: 4 mg Documented By: LLOYD Ondansetron HCl (Ondansetron 4 Mg/2 Ml Inj) 4 mg IV NOW PRN PRN Reason: Nausea And Vomiting Last Admin: 03/12/23 13:56 Dose: 4 mg Documented By: NORMAN Ondansetron HCl (Ondansetron 4 Mg/2 Ml Inj) 4 mg IV NOW ONE Stop: 03/12/23 14:51 Last Admin: 03/12/23 15:34 Dose: 4 mg Documented By: CINTIA Vital Signs Vital signs: Vital Signs - 8 hr 03/12/23 13:01 03/12/23 14:41 03/12/23 14:42 Temperature 98.4 F Pulse Rate 94 H 88 Respiratory Rate 18 Blood Pressure 115/65 130/64 Pulse Oximetry 100 100 Oxygen Delivery Method Room Air 03/12/23 14:43 03/12/23 14:43 03/12/23 15:00 Temperature Pulse Rate 86 83 Respiratory Rate Blood Pressure 112/56 L Pulse Oximetry 100 99 Oxygen Delivery Method 03/12/23 15:22 03/12/23 15:22 03/12/23 15:30 Temperature Pulse Rate 87 Respiratory Rate Blood Pressure 115/57 L 112/60 Pulse Oximetry 100 Oxygen Delivery Method 03/12/23 15:30 03/12/23 16:00 03/12/23 16:01 Temperature Pulse Rate 76 78 Respiratory Rate Blood Pressure 103/59 L Pulse Oximetry 100 100 Oxygen Delivery Method 03/12/23 16:01 03/12/23 16:26 03/12/23 16:26 Temperature Pulse Rate 82 79 Respiratory Rate Blood Pressure 104/52 L Pulse Oximetry 100 98 Oxygen Delivery Method 03/12/23 16:30 03/12/23 16:30 03/12/23 16:45 Temperature Pulse Rate 76 Respiratory Rate Blood Pressure 100/51 L 107/57 L Pulse Oximetry 99 Oxygen Delivery Method 03/12/23 16:45 Temperature Pulse Rate 83 Respiratory Rate Blood Pressure Pulse Oximetry 100 Oxygen Delivery Method MDM - Abdominal Pain Lab Data 03/12/23 13:45 03/12/23 13:45 Labs: Lab Results 03/12/23 03/12/23 Range/Units 13:45 13:45 WBC 11.7 H (4.5-11.0) X10^3/uL RBC 4.40 (4.0-5.2) X10^6/uL Hgb 11.9 L (12.0-16.0) g/dL Hct 36.2 (36-46) % MCV 82.4 (80-100) fL MCH 27.1 (26-34) PG MCHC 32.9 (30-36) % RDW 15.1 H (11.6-14.8) % Plt Count 307 (150-400) X10^3/uL Neut % (Auto) 81.6 H (50-75) % Lymph % (Auto) 11.6 L (25-40) % [place] % (Auto) 6.1 (3-14) % Eos % (Auto) 0.4 L (2-4) % Baso % (Auto) 0.3 (0-2) % Neut # (Auto) 9500 H (3073-7594) /uL Lymph # (Auto) 1400 (4779-4875) /uL [place] # (Auto) 700 (0-900) /uL Eos # (Auto) 0 (0-450) /uL Baso # (Auto) 0 (0-100) /uL Sodium 140 (137-145) mmol/L Potassium 3.9 (3.4-5.1) mmol/L Chloride 105 (98-107) mmol/L Carbon Dioxide 25 (22-32) mmol/L BUN 10 (7-17) mg/dL Creatinine 0.61 (0.52-1.04) mg/dL Estimated GFR > 60 (>60) mL/min BUN/Creatinine Ratio 16.4 (6-22) Glucose 122 H (70-100) mg/dL Calcium 9.4 (8.4-10.2) mg/dL Total Bilirubin 0.6 (0.2-1.3) mg/dL AST 20 (14-36) IU/L ALT 17 (<35) IU/L Alkaline Phosphatase 50 (38-126) U/L Total Protein 7.6 (6.3-8.2) g/dL Albumin 4.6 (3.5-5.0) g/dL Globulin 3.0 (1.7-4.1) g/dL Albumin/Globulin Ratio 1.5 (1.0-2.8) Lipase 55 (23-300) U/L Point of care testing: Point of Care Testing Test Results Negative Urine Dip Bedside Urine Glucose Negative Bedside Urine Bilirubin - Negative Bedside Urine Ketone - Negative Urine Specific [place] 1.015 Bedside Urine Occult Blood - Negative Bedside Urine pH 7.5 Bedside Urine Protein - Negative Bedside Urine Urobilinogen - Negative Bedside Urine Nitrite - Negative Bedside Urine Leukocytes - Negative Esterase Imaging Data CT scan - abdomen/pelvis: Radiologist's Impression: [address] [address] [address] Scan Report Signed Patient: Leeann Schwartz MR#: [id number] : 2000 Acct:[id number] Age/Sex: 22 / F Date of Service: 03/12/23 Loc: ED Accession Number: [id number] ?? Procedure: CT abdomen pelvis w con Ordering Provider: Prudence Badillo D.O. PROCEDURE:? CT ABDOMEN PELVIS W CON ? INDICATIONS:? abd pain, generalized, mucous/BRB in stool x 2 days ? TECHNIQUE:? After the administration of intravenous contrast, axial sections acquired from the lung bases to the pubic symphysis.? Coronal and sagittal reformats were performed.? For radiation dose reduction, the following was used:? automated exposure control, adjustment of mA and/or kV according to patient size.? ? COMPARISON:? None. ? FINDINGS: Image quality:? Excellent.? ? Lung bases:? Lung bases are clear.? Heart size is normal. ? Solid organs:? Liver: The liver has no mass or intrahepatic biliary ductal dilatation.? The liver demonstrates low density consistent with hepatic steatosis.? Biliary:? The gallbladder has a 4 mm stone.? No wall thickening or pericholecystic fluid. ? Pancreas: The pancreas has no mass or ductal dilatation. There is no surrounding inflammation. Spleen: Normal size. There are no masses. Adrenals: No hypertrophy or nodules. Kidneys: No obstructive calculus or hydronephrosis.? No solid mass. No cystic mass. ? Peritoneum and bowel:? The distal esophagus and stomach are normal.? The small bowel has a normal caliber and appearance. The terminal ileum is normal. The large bowel has a normal caliber and appearance.? The appendix is not definitively visualized and therefore acute appendicitis cannot be excluded; however there are no secondary findings to suggest acute appendicitis.? No free fluid or air.? ? Nodes and vessels:? No retroperitoneal or mesenteric adenopathy by size criteria.? Aorta and inferior vena cava are normal in size.? ? Miscellaneous:? No abdominal wall mass or hernia. ? PELVIS:? Genitourinary:? The bladder has no wall thickening or mass. No bladder calcifications.? Both ovaries demonstrate multiple prominent follicles ? Bones:? No suspicious bony lesions.? No vertebral body compression fractures.? ? IMPRESSION:? 1. No acute abdominal or pelvic abnormality. 2. The appendix is not definitively visualized and therefore acute appendicitis cannot be excluded; however there are no secondary findings to suggest acute appendicitis.? Please correlate clinically and follow-up as appropriate if this is a consideration.? ? ? Dictated by: Paulo Sanchez M.D. on 03/12/2023 at 14:26 ? ? Approved by: Paulo Sanchez M.D. on 03/12/2023 at 14:30?? MDM Narrative Medical decision making narrative: 22-year-old female with a white count of 11 actually improved from yesterday at 12.5 hemoglobin is 11.9 stable compared to yesterday and 12.5 at the beginning of January, platelets are normal. CMP does not show any changes to electrolytes, renal function or LFT. Glucose 122. Point of care negative and urine negative. Patient is quite tender generalized, she would abdominal ultrasound the which did show gallstones but no thickening or changes consistent with cholecystitis. She is now got more generalized pain and states she is started having bright red blood Joby is stools. Suspect possible colitis. CT abdomen pelvis obtained shows no acute abdominal or pelvic abnormality appendix was not definitively visualized but no suggestion of acute appendicitis patient has generalized pain with some rectal bleeding my suspicion is more that she has some type of colitis. Patient states she is been told to get a colonoscopy in the past. Patient's has not had persistent bright red blood. [place] stable and appropriate for discharge. Discharged home with oral pain medication, referral for General surgery and Gastroenterology. We did discuss return precautions. Discharge Plan Departure Patient Disposition: Home Clinical Impression: Abdominal pain, Bright red rectal bleeding, Gallstones Instructions: DI for Rectal Bleeding Activity Restrictions/Additional Instructions: Please follow up with General surgery and/or Gastroenterology for colonoscopy. Please call Tuesday morning to set up an appointment. You were found to have gallstones on your workup 2 days ago, I do not think this is the main source of your pain today but general surgery would be the appropriate person to follow-up. Your imaging today does not show clear changes to the bowel but with your complaint of abdominal pain and mucousy red stool you need colonoscopy for further evaluation. You may take 1000 mg every 6 hours as needed for pain. If inadequate you can take narcotic pain medication 1-2 tablets every 6 hours as needed. This medication can make you sleepy do not drive, perform hazardous acti vities or make any major decisions while taking it. This medication will make you constipated please take a stool softener once to twice daily until stools are soft and regular. Prescription printed. Please return for fevers, worsening symptoms, persistent vomiting, increasing large amounts of, large clots, lightheadedness or passing out or other new or concerning changes. Prescriptions: New oxycodone 5 mg tablet 5 mg PO Q6H PRN (Reason: pain) Qty: 10 0RF No Action hydrocodone-acetaminophen 5-325 mg tablet 1 tab PO Q4-6H PRN (Reason: pain) Qty: 10 0RF ondansetron 4 mg tablet,disintegrating 4 mg PO TID-QID PRN (Reason: nausea and vomiting) Qty: 10 0RF Referrals: Michael Warner MD [Physician] - Antony Mcdermott MD [Physician] - Miscellaneous,MD Dimas [Primary Care Provider] - Stand Alone Forms: Patient Portal/API
--- NOTE | 2023-03-12 14:50 | DI.CT.S_ITS ---
PROCEDURE: CT ABDOMEN PELVIS W CON INDICATIONS: abd pain, generalized, mucous/BRB in stool x 2 days TECHNIQUE: After the administration of intravenous contrast, axial sections acquired from the lung bases to the pubic symphysis. Coronal and sagittal reformats were performed. For radiation dose reduction, the following was used: automated exposure control, adjustment of mA and/or kV according to patient size. COMPARISON: None. FINDINGS: Image quality: Excellent. Lung bases: Lung bases are clear. Heart size is normal. Solid organs: Liver: The liver has no mass or intrahepatic biliary ductal dilatation. The liver demonstrates low density consistent with hepatic steatosis. Biliary: The gallbladder has a 4 mm stone. No wall thickening or pericholecystic fluid. Pancreas: The pancreas has no mass or ductal dilatation. There is no surrounding inflammation. Spleen: Normal size. There are no masses. Adrenals: No hypertrophy or nodules. Kidneys: No obstructive calculus or hydronephrosis. No solid mass. No cystic mass. Peritoneum and bowel: The distal esophagus and stomach are normal. The small bowel has a normal caliber and appearance. The terminal ileum is normal. The large bowel has a normal caliber and appearance. The appendix is not definitively visualized and therefore acute appendicitis cannot be excluded; however there are no secondary findings to suggest acute appendicitis. No free fluid or air. Nodes and vessels: No retroperitoneal or mesenteric adenopathy by size criteria. Aorta and inferior vena cava are normal in size. Miscellaneous: No abdominal wall mass or hernia. PELVIS: Genitourinary: The bladder has no wall thickening or mass. No bladder calcifications. Both ovaries demonstrate multiple prominent follicles Bones: No suspicious bony lesions. No vertebral body compression fractures. IMPRESSION: 1. No acute abdominal or pelvic abnormality. 2. The appendix is not definitively visualized and therefore acute appendicitis cannot be excluded; however there are no secondary findings to suggest acute appendicitis. Please correlate clinically and follow-up as appropriate if this is a consideration. Dictated by: Paulo Sanchez M.D. on 03/12/2023 at 14:26 Approved by: Paulo Sanchez M.D. on 03/12/2023 at 14:30
[2023-03-12] MEDS: SODIUM CHLORIDE 0.9% 1,000 ML 1000 ML IV (15:34)
[2023-03-12] MEDS: KETOROLAC 30 MG/ML VIAL 15 MG IV (15:34)
[2023-03-12] MEDS: MORPHINE 4 MG/ML INJ IV ×2 (16:20→16:54)
[2023-03-12] MEDS: ONDANSETRON 4 MG ODT PO (16:54)
== END 2023-03-12 17:12 | disposition home or self-care (01) ==
PROVIDERS: Emergency Provider Emergency Medicine
DX: K80.20 Calculus of gallbladder without cholecystitis without obstruction (principal); R10.84 Generalized abdominal pain; K62.5 Hemorrhage of anus and rectum
CPT/HCPCS: 36415; 74177; 80053; 81003; 81025; 83690; 85025; 96361; 96374; 96375; 96376; 99284; J1885; J2270; J2405; Q9967

== ENCOUNTER 2023-03-19 20:45 | Observation (INO) | payer OTHER, MEDICAID, SELFPAY ==
[2023-03-19 20:47] VITALS: BP 117/78; PULSE 86; RESP 18; TEMP 36.5; O2SAT 99; BMI 20.8
--- NOTE | 2023-03-19 20:54 | ED_ITS ---
HPI - Abdominal Pain General Chief Complaint: Abdominal Pain Stated Complaint: ABD pain, Surgery 03/13 Time Seen by Provider: 03/19/23 20:50 Source: patient Mode of arrival: Ambulatory History of Present Illness HPI narrative: 23-year-old female smoker with known gallbladder disease and scheduled surgery for cholecystectomy as an outpatient in a few weeks. She presents today with worsening right upper quadrant pain with radiation to her back. It is made worse with food and drink. She has known gallbladder disease with a recent ultr asound just a few days ago but states the pain is much worse. She denies fever but has had chills all day. Her pain is worse when she moves when she eats and improves with rest. Related Data Home Medications Medication Instructions Recorded Confirmed cetirizine 5 mg-pseudoephedrine ER 1 tab PO ONCE 03/14/23 03/14/23 120 mg tablet,extended release,12hr Previous Rx's Medication Instructions Recorded ondansetron 4 mg disintegrating 4 mg PO TID-QID PRN nausea and 03/09/23 tablet vomiting #10 tabs oxycodone 5 mg tablet 5 mg PO Q6H PRN pain #10 tabs 03/12/23 Allergies Allergy/AdvReac Type Severity Reaction Status Date / Time No Known Drug Allergies Allergy Verified 03/14/23 15:17 Review of Systems Review of Systems Narrative: GENERAL: Denies chills, fatigue, malaise, fever, sweats. HEENT: Denies sinus pain, ear pain, sore throat, difficulty swallowing, dizziness. RESPIRATORY: Denies dyspnea, cough, wheezing, hemoptysis, sputum. CARDIOVASCULAR: Denies chest pain, palpitations, orthopnea, edema, GASTROINTESTINAL see HPI : Denies dysuria, frequency, incontinence, hematuria, urinary retention. MUSCULOSKELETAL: denies weakness, joint pain, or bony pain SKIN: Denies rash, skin lesions, or other NEUROLOGIC: Denies weakness, headache, numbness, change in speech, confusion, seizures, incoordination. PSYCHIATRIC: No concerning psychosocial issues. 12 point review of systems is negative except for those stated above Patient History Medical History ADHD (~2004) Allergies (~2009) Ankle pain (~2018) Anxiety (~2009) Chronic cough (~2017) Eczema (~2002) Foot pain (~2013) Fracture (~2013) Gallstones Glaucoma (~2007) Healthy adult Heart murmur Heavy menstrual period (~2010) Migraines (~2015) Optic nerve disorder Painful menstrual periods (~2010) Raynaud's disease Family History Grandmother Breast cancer Social History household members: significant other lives independently: Yes Smoking Status: Current every day smoker alcohol intake: current Smoking Status: Current every day smoker tobacco type: vaping alcohol intake frequency: holidays/special occasions only Substance Use Type: marijuana Exam Narrative Exam Narrative: GENERAL: [23] year old patient appears stated age. Well-developed patient, in obvious distress. HEAD: Atraumatic. Normocephalic. EYES: Pupils equal round and reactive. Extraocular motions intact. No scleral icterus. No injection or drainage. ENT: Nose without bleeding, purulent drainage. Throat without erythema, tonsillar hypertrophy or exudate. Airway patent. NECK: Trachea midline. Non tender CARDIOVASCULAR: Regular rate and rhythm without murmurs, gallops, or rubs. RESPIRATORY: Clear to auscultation. Breath sounds equal bilaterally. No wheezes, rales, or rhonchi. GASTROINTESTINAL: Abdomen soft, severe epigastric and right upper quadrant pain, positive Paula's, nondistended. EXTREMITIES: No edema or joint tenderness. BACK: Nontender without deformity or crepitance. No flank tenderness. NEURO: AOx3. SKIN: No rash or erythema of visible areas Initial Vital Signs Initial Vital Signs: Vital Signs Temperature 97.7 F 03/19/23 20:47 Pulse Rate 86 03/19/23 20:47 Respiratory Rate 18 03/19/23 20:47 Blood Pressure 117/78 03/19/23 20:47 Pulse Oximetry 99 03/19/23 20:47 Oxygen Delivery Method Room Air 03/19/23 20:47 Course Orders Ordered: ED Orders 03/19/23 21:00 Complete Blood Count AUTO DIFF Stat Comprehensive Metabolic Panel Stat Lipase Stat 03/19/23 21:20 US abdomen limited Stat Acetaminophen (Acetaminophen 325 Mg Tablet) 650 mg PO Q6H PRN PRN Reason: Fever/Mild Pain (1-3) Hydromorphone HCl (Hydromorphone 0.5 Mg Inj) 0.5 mg IV Q2H PRN PRN Reason: Pain, Severe (7-10) Sodium Chloride (Normal Saline 0.9%) 1,000 mls @ 100 mls/hr IV CONT SAADIA Piperacillin Sod/Tazobactam (Sod 3.375 gm/ Sodium Chloride) 100 mls @ 25 mls/hr IV Q8H SAADIA Ibuprofen (Ibuprofen 600 Mg Tablet) 600 mg PO Q6H PRN PRN Reason: Fever/Mild Pain (1-3) Naloxone HCl (Naloxone 0.4 Mg/Ml Vial) 0.2 mg IV Q2MIN PRN PRN Reason: Opiate Reversal Oxycodone HCl (Oxycodone Ir 5 Mg Tablet) 5 mg PO Q3H PRN PRN Reason: Pain, Moderate (4-6) Discontinued Medications Hydromorphone HCl (Hydromorphone 0.5 Mg Inj) 0.5 mg IV NOW ONE Stop: 03/19/23 20:54 Last Admin: 03/19/23 21:02 Dose: 0.5 mg Documented By: RADHA Hydromorphone HCl (Hydromorphone 0.5 Mg Inj) 0.5 mg IV NOW ONE Stop: 03/19/23 21:47 Last Admin: 03/19/23 22:10 Dose: 0.5 mg Documented By: RADHA Sodium Chloride (Normal Saline 0.9%) 1,000 mls @ 1,000 mls/hr IV BOLUS ONE Stop: 03/19/23 21:52 Last Admin: 03/19/23 21:02 Dose: 1,000 mls/hr Documented By: RADHA Ondansetron HCl (Ondansetron 4 Mg/2 Ml Inj) 4 mg IV NOW ONE Stop: 03/19/23 20:54 Last Admin: 03/19/23 21:02 Dose: 4 mg Documented By: RADHA Consultations Consultation #1: Discussed with Dr. Doe, given the worsening symptoms, already planned surgery, multiple rounds of pain meds he recommends admitting the patient and will perform cholecystectomy tomorrow Vital Signs Vital signs: Vital Signs - 8 hr 03/19/23 20:47 Temperature 97.7 F Pulse Rate 86 Respiratory Rate 18 Blood Pressure 117/78 Pulse Oximetry 99 Oxygen Delivery Method Room Air MDM - Abdominal Pain Lab Data 03/19/23 21:00 03/19/23 21:00 Labs: Lab Results 03/19/23 03/19/23 Range/Units 21:00 21:00 WBC 7.9 (4.5-11.0) X10^3/uL RBC 4.23 (4.0-5.2) X10^6/uL Hgb 11.4 L (12.0-16.0) g/dL Hct 34.8 L (36-46) % MCV 82.3 (80-100) fL MCH 26.9 (26-34) PG MCHC 32.7 (30-36) % RDW 15.2 H (11.6-14.8) % Plt Count 296 (150-400) X10^3/uL Neut % (Auto) 66.7 (50-75) % Lymph % (Auto) 24.1 L (25-40) % [place] % (Auto) 7.9 (3-14) % Eos % (Auto) 0.8 L (2-4) % Baso % (Auto) 0.5 (0-2) % Neut # (Auto) 5300 (2191-5664) /uL Lymph # (Auto) 1900 (8005-2213) /uL [place] # (Auto) 600 (0-900) /uL Eos # (Auto) 100 (0-450) /uL Baso # (Auto) 0 (0-100) /uL Sodium 138 (137-145) mmol/L Potassium 3.7 (3.4-5.1) mmol/L Chloride 104 (98-107) mmol/L Carbon Dioxide 25 (22-32) mmol/L BUN 16 (7-17) mg/dL Creatinine 0.60 (0.52-1.04) mg/dL Estimated GFR > 60 (>60) mL/min BUN/Creatinine Ratio 26.7 H (6-22) Glucose 94 (70-100) mg/dL Calcium 9.0 (8.4-10.2) mg/dL Total Bilirubin 0.8 (0.2-1.3) mg/dL AST 20 (14-36) IU/L ALT 16 (<35) IU/L Alkaline Phosphatase 58 (38-126) U/L Total Protein 7.4 (6.3-8.2) g/dL Albumin 4.4 (3.5-5.0) g/dL Globulin 3.0 (1.7-4.1) g/dL Albumin/Globulin Ratio 1.5 (1.0-2.8) Lipase 92 D (23-300) U/L Discharge Plan Departure Patient Disposition: Admitted as Observation Clinical Impression: Gallstones Admit Date/Time: 03/19/23 21:56 Admit Provider: Alexey Doe
[2023-03-19] MEDS: ONDANSETRON 4 MG/2 ML INJ IV (21:02)
[2023-03-19] MEDS: SODIUM CHLORIDE 0.9% 1,000 ML 1000 ML IV (21:02)
[2023-03-19] MEDS: HYDROMORPHONE 0.5 MG INJ IV ×2 (21:02→22:10)
[2023-03-19 21:18] LABS: Add Manual Diff / Slide Review NO; Basophils Absolute Auto 0 /uL (0-100); Basophils Percent Auto 0.5 % (0-2); Eosinophils Absolute Auto 100 /uL (0-450); Eosinophils Percent Auto 0.8 % (2-4); Hematocrit 34.8 % (36-46); Hemoglobin 11.4 g/dL (12.0-16.0); Lymphocytes Absolute Auto 1900 /uL (1100-4500); Lymphocytes Percent Auto 24.1 % (25-40); Mean Corpuscular HGB Conc 32.7 % (30-36); Mean Corpuscular Hemoglobin 26.9 PG (26-34); Mean Corpuscular Volume 82.3 fL (80-100); Monocytes Absolute Auto 600 /uL (0-900); Monocytes Percent Auto 7.9 % (3-14); Neutrophils Absolute Auto 5300 /uL (1500-7000); Neutrophils Percent Auto 66.7 % (50-75); Platelet Count 296 X10^3/uL (150-400); Red Blood Cell Count 4.23 X10^6/uL (4.0-5.2); Red Cell Distribution Width 15.2 % (11.6-14.8); White Blood Cell Count 7.9 X10^3/uL (4.5-11.0)
--- NOTE | 2023-03-19 21:20 | DI.US.S_ITS ---
PROCEDURE: US ABDOMEN LIMITED INDICATIONS: RUQ PAIN TECHNIQUE: Real-time focused scanning was performed of the abdomen, with image documentation. COMPARISON: [facility], , US ABDOMEN LIMITED, 03/09/2023, 14:25. FINDINGS: The liver is normal in size and echotexture, but the gallbladder contains 2 nonobstructive 6 mm calculi that appear mobile, with no gallbladder wall thickening. The pancreas visualized appears normal. The bile ducts are non distended. IMPRESSION: Mobile gallstones measuring only 6 mm present within the gallbladder lumen without evidence of biliary obstruction or acute cholecystitis. Dictated by: Darren Aragon M.D. on 03/19/2023 at 21:38 Approved by: Darren Aragon M.D. on 03/19/2023 at 21:39
[2023-03-19 21:23] LABS: Alanine Aminotransferase 16 IU/L (<35); Albumin 4.4 g/dL (3.5-5.0); Albumin Globulin Ratio 1.5 (1.0-2.8); Alkaline Phosphatase 58 U/L (38-126); Aspartate Aminotransferase 20 IU/L (14-36); BUN Creatinine Ratio 26.7 (6-22); Bilirubin Total 0.8 mg/dL (0.2-1.3); Blood Urea Nitrogen 16 mg/dL (7-17); Carbon Dioxide 25 mmol/L (22-32); Chloride 104 mmol/L (98-107); Estimated Glomerular Filt Rate > 60 mL/min (>60); Glucose 94 mg/dL (70-100); HEMOLYSIS 16 (0-50); Lipase 92 U/L (23-300); Potassium 3.7 mmol/L (3.4-5.1); Sodium 138 mmol/L (137-145); Total Protein 7.4 g/dL (6.3-8.2)
[2023-03-19] MEDS: SODIUM CHLORIDE 0.9% 1,000 ML 100 ML IV (23:18)
[2023-03-19] MEDS: PIPERACILLIN/TAZO 3.375 GM in SODIUM CHLORIDE 0.9% 100 ML IV (23:18)
[2023-03-19 23:40] VITALS: BP 115/77; PULSE 89; RESP 20; TEMP 36.6; O2SAT 100
[2023-03-20] VITALS (17 sets, daily range): BP systolic 103–136; BP diastolic 50–90; PULSE 62–91; RESP 11–20; TEMP 36.1–36.4; O2SAT 93–100; BMI 20.8
--- NOTE | 2023-03-20 | PATH_ITS ---
[facility] Accession Number: [id number] No. of containers..01 Tissue . 01 Material submitted: . gallbladder - GALLBLADDER . 01 Diagnosis: Gallbladder, Cholecystectomy: Cholelithiasis. No evidence of neoplasm. MRV 03/25/2023 1250 Local . 01 Electronically signed: . Horacio Saravia MD, PhD, Pathologist NPI- [id number] . 01 Gross description: . The specimen is received in formalin labeled with the patient's name, , and gallbladder, and consists of an intact gallbladder measuring 5.2 x 2.2 x 1.7 cm. The cystic duct is inked blue, with no pericystic lyph node identified. The lumen contains green mucoid bile and a single black roughened calculus measuring 0.7 cm in greatest dimension not grossly obstructing the cystic duct. The mucosa is green and velvety with no discoloration, polyps, or lesions identified. The [place] average 0.2 cm thick and players club representative sections to include the cystic duct margin and full thickness sections are submitted in cassette A1. ([id number]) /WU 03/23/2023 0938 Local . 01 Pathologist provided ICD-10: K80.70 . 01 CPT . 272580 Specimen Comment: A courtesy copy of this report has been sent to [phone] Performed at: 01 [facility] [address] [place] [address], [place], [place] [id number] MD Livan Seay MD Phone: [phone]
[2023-03-20] MEDS: HYDROMORPHONE 0.5 MG INJ IV ×8 (00:46→22:18)
[2023-03-20] MEDS: PIPERACILLIN/TAZO 3.375 GM in SODIUM CHLORIDE 0.9% 100 ML IV (05:40)
[2023-03-20] MEDS: LACTATED RINGERS 1,000 ML 42 ML IV ×2 (08:51→10:48)
--- NOTE | 2023-03-20 09:05 | PM.HP.1 ---
History of Present Illness History of Present Illness Date Patient Seen: 03/20/23 Time Patient Seen: 09:05 Chief complaint: ABD pain, Surgery 03/13 Narrative: 23-year-old woman admitted with acute cholecystitis. She has a planned laparoscopic cholecystectomy for biliary colic within the next few weeks. Yesterday she presented to the emergency department at [facility] ER with severe persistent right upper quadrant pain. At admission afebrile CBC and LFTs unremarkable. Ultrasound demonstrates gallbladder with stones no biliary ductal dilation. [facility] Medical History ADHD (~2004) Allergies (~2009) Ankle pain (~2018) Anxiety (~2009) Chronic cough (~2017) Eczema (~2002) Foot pain (~2013) Fracture (~2013) Gallstones Glaucoma (~2007) Healthy adult Heart murmur Heavy menstrual period (~2010) Migraines (~2015) Optic nerve disorder Painful menstrual periods (~2010) Raynaud's disease Family History Grandmother Breast cancer Social History household members: significant other lives independently: Yes Smoking Status: Current every day smoker alcohol intake: current Meds Home Medications and Allergies Home Medications Medication Instructions Recorded Confirmed Type No Known Home Medications 03/20/23 03/20/23 History Allergies Allergy/AdvReac Type Severity Reaction Status Date / Time No Known Drug Allergies Allergy Verified 03/14/23 15:17 Exam Vital Signs (past 8 hours): - 03/20/23 04:53 03/20/23 08:52 Temperature 97.4 F L 97.1 F L Pulse Rate 68 81 Respiratory Rate 18 16 Blood Pressure 109/59 L 133/76 Pulse Oximetry 100 100 Oxygen Delivery Method Room Air Oxygen Flow Rate 0 Oxygen Delivery Method Room Air Oxygen Flow Rate 0 Narrative Exam Narrative: General adult woman alert oriented no acute distress Chest nonlabored respiration Abdomen positive Paula sign. Objective Labs 03/19/23 21:00 03/19/23 21:00 Labs: Laboratory Results - last 24 hr 03/19/23 03/19/23 21:00 21:00 WBC 7.9 RBC 4.23 Hgb 11.4 L Hct 34.8 L MCV 82.3 MCH 26.9 MCHC 32.7 RDW 15.2 H Plt Count 296 Neut % (Auto) 66.7 Lymph % (Auto) 24.1 L Delta % (Auto) 7.9 Eos % (Auto) 0.8 L Baso % (Auto) 0.5 Neut # (Auto) 5300 Lymph # (Auto) 1900 Delta # (Auto) 600 Eos # (Auto) 100 Baso # (Auto) 0 Sodium 138 Potassium 3.7 Chloride 104 Carbon Dioxide 25 BUN 16 Creatinine 0.60 Estimated GFR > 60 BUN/Creatinine Ratio 26.7 H Glucose 94 Calcium 9.0 Total Bilirubin 0.8 AST 20 ALT 16 Alkaline Phosphatase 58 Total Protein 7.4 Albumin 4.4 Globulin 3.0 Albumin/Globulin Ratio 1.5 Lipase 92 D Assessment & Plan Assessment and plan (1) Acute cholecystitis: Status: Acute Assessment & Plan narrative: 23-year-old woman with symptoms and radiographic findings consistent with acute cholecystitis. Overview of the operation was discussed. Operative risks including hemorrhage, infection, damage to surrounding structures, bile duct injury, conversion open discussed. Questions have been answered. She provides her written and verbal consent to proceed.
--- NOTE | 2023-03-20 09:38 | SUR.OPER ---
Supine on padded OR bed, head on pillow, safety belt at thigh, left arm padded and tucked at side. Right arm secured on padded arm board <90 degrees abduction. Legs uncrossed. Padded footboard in place. Tape over blanket to secure lower legs.
--- NOTE | 2023-03-20 10:33 | P.OP_ITS ---
Operative Date/Time/Diagnoses Date of procedure: 03/20/23 Time of procedure: 10:33 Pre-op diagnosis: Acute cholecystitis Post-op diagnosis: same Procedure & Clinicians Procedure: Laparoscopic cholecystectomy Same procedure as scheduled: Yes Indications: Symptoms and radiographic findings consistent with acute cholecystitis Surgeon: Alexey Alonzo Yes if Unassisted: Yes Anesthesia Type: General Operative Notes Findings: Acute cholecystitis. Tense distended gallbladder Specimen(s): other (Gallbladder) Estimated Blood Loss (mL): 50 Procedure in detail: The patient was placed supine on the table and bilateral lower extremity compression devices were applied. Anesthesia was induced they were intubated with an endotracheal tube and received antibiotics.. A time-out was performed. They were prepped and draped in sterile fashion. An infraumbilical incision was made. The fascia was elevated incised and the abdomen was entered atraumatically. A blunt tip 12mm balloon trocar was then inserted, pneumoperitoneum was established and inspection of the abdomen demonstrated no evidence of injury. They were placed head up and right side up and then a 11 mm port was placed high in the epigastrium and two 5mm in the right upper quadrant. The gallbladder was grasped by the fundus and retracted over the liver and retracted laterally by the infundibulum. Gallbladder was tense and distended consistent with acute cholecystitis. Using electrocautery the lateral plane between the gallbladder and the liver was opened towards the fundus. The gallbladder was then retracted laterally and the medial plane was developed in the same manner. With the gallbladder mobilized the bottom of the cystic plate was visualized. The hepatocystic triangle was meticulosly skeletonized with blunt dissection of fat and fibrous tissue from both the front and the back. Only two structures were then clearly seen entering the gallbladder the cystic duct and the cystic artery. With the critical view of safety fully established the cystic duct was clipped twice proximally and once distally using the hemoclip applied under direct visualization and then sharply divided. The cystic artery was divided in the same fashion. There was a posterior branch of the cystic artery which was controlled with hemoclips. The gallbladder was removed from the liver bed using electro cautery. The liver bed was then inspected for hemostasis and this was achieved. The abdomen was irrigated with sterile saline and inspection was made that showed the clips in good position. The specimen was removed using Endo-Catch. The abdomen was desufflated. The umbilical fascia was closed with 0 Vicryl in a [id number] fashion under direct visualization. Skin incisions were irrigated and closed with 4-0 Monocryl. 30 ml of 0.25% bupivacaine was infiltrated into the subcutaneous tissue of the incisions. The wounds were sealed with Dermabond. Patient emerged from anesthesia was extubated and transferred to recovery in stable condition. The sponge and instrument count at the end of the operation was cor rect. Complications: none Post-operative Condition: stable Disposition: same day surgery
[2023-03-20] MEDS: ACETAMINOPHEN 325 MG TABLET 650 MG PO ×2 (11:56→18:43)
[2023-03-20] MEDS: LORazepam 0.5 MG TABLET PO ×3 (12:42→23:14)
[2023-03-20] MEDS: IBUPROFEN 600 MG TABLET PO ×2 (13:40→19:44)
[2023-03-20] MEDS: SODIUM CHLORIDE 0.9% 1,000 ML 100 ML IV ×2 (14:40→23:52)
[2023-03-20] MEDS: OXYCODONE IR 5 MG TABLET PO ×2 (16:07→21:36)
[2023-03-20] MEDS: SCOPOLAMINE 1 PATCH TOP (23:11)
--- NOTE | 2023-03-20 23:30 | PC.NURSE ---
Addendum entered by Lynne Lipscomb R.N. 03/21/23 02:44: Has been asleep past few hours now calling as was incontinent of urine as external catheter didn't work properly; removed and clothing/linen changed. While up having gown changed she began complaining of nausea followed by a 200cc emesis so medicated with Zofran. Attempted to have patient ambulate in puri as still states abdomen, right ribs & scapular pain is 9/10 but declined stating she was too sleepy. Medicated with Dilaudid for her pain. Original Note: Patient is alert and oriented but tearful and anxious. Has been complaining of 10/10 pain since start of shift. Initially medicated with ibuprofen (had both tylenol + dilaudid at 1843) and when looked in on 15 minutes later was asleep. Despite pain has been face timing with boyfriend and texting as well. At 2135 was medicated with oxycodone but patient continuing to cry and calling out in pain and then proceeded to vomit 200cc. Medicated with Dilaudid (pain located in abdomen incision sites, right lower rib cage and right scapula) as well as ativan for anxiety but had almost immediate emesis of 100cc. Dr. Doe was contacted ans orders received for antiemetics and ativan repeat but did not want to change pain medication at that time. Patient asleep shortly after but awakened when scopalamine patch applied; denied nausea at that time but stated pain was still 9/10. Discussed with patient that once she is more awake will need to get her out of bed and walking in puri to help alleviate pain likely related to gas used during surgery. Breath sounds CTA with RA sat of 99%. HRR. BT hypoactive and denies flatus as yet. Has external catheter on which was placed during day shift so will remove when next awake as patient needs to become more mobile. Declines use of SCD's so reminded to ankle wave. Fall risk assessment is low.
[2023-03-21] MEDS: ONDANSETRON 4 MG/2 ML INJ IV (02:16)
[2023-03-21] MEDS: HYDROMORPHONE 0.5 MG INJ IV (02:29)
[2023-03-21 03:00] VITALS: BP 112/73; PULSE 89; RESP 20; TEMP 36.6; O2SAT 97
[2023-03-21] MEDS: OXYCODONE IR 5 MG TABLET PO ×2 (04:29→09:28)
[2023-03-21 07:00] VITALS: BP 113/56; PULSE 116; RESP 17; TEMP 36.6; O2SAT 100; O2SAT 97
[2023-03-21] MEDS: ACETAMINOPHEN 325 MG TABLET 650 MG PO (07:57)
[2023-03-21] MEDS: IBUPROFEN 600 MG TABLET PO (07:57)
[2023-03-21] MEDS: LORazepam 0.5 MG TABLET PO (10:25)
== END 2023-03-21 11:20 | disposition home or self-care (01) ==
LOC: ED 20:50 → AC 21:57
PROVIDERS: Admitting Provider Surgery; Emergency Provider Emergency Medicine; Visit Provider Surgery
PROC: 0FT44ZZ Resection of Gallbladder, Percutaneous Endoscopic Approach (ICD-10-PCS; CPT 47562; principal; 2023-03-20 09:30)
DX: K81.0 Acute cholecystitis (principal)
CPT/HCPCS: 47562; 36415; 76705; 80053; 81003; 83690; 85025; 96361; 96365; 96366; 96375; 96376; 99221; 99284; G0378; J1100; J1170; J1885; J2250; J2405; J2543; J2704; J3010; J3490

== ENCOUNTER 2023-04-27 10:35 | Inpatient (IN) | payer OTHER, MEDICAID, SELFPAY ==
[2023-03-20 01:12] VITALS: BMI 20.8
[2023-04-27] VITALS (29 sets, daily range): BP systolic 83–142; BP diastolic 54–86; PULSE 62–99; RESP 14–20; TEMP 36.4–36.7; O2SAT 95–100; BMI 21.7
[2023-04-27] MEDS: ONDANSETRON 4 MG/2 ML INJ IV ×2 (11:12→22:30)
[2023-04-27 11:22] LABS: Add Manual Diff / Slide Review NO; Basophils Absolute Auto 0 /uL (0-100); Basophils Percent Auto 0.6 % (0-2); Eosinophils Absolute Auto 100 /uL (0-450); Hematocrit 36.3 % (36-46); Hemoglobin 11.7 g/dL (12.0-16.0); Lymphocytes Absolute Auto 1700 /uL (1100-4500); Lymphocytes Percent Auto 26.8 % (25-40); Mean Corpuscular HGB Conc 32.3 % (30-36); Mean Corpuscular Hemoglobin 25.7 PG (26-34); Mean Corpuscular Volume 79.7 fL (80-100); Monocytes Absolute Auto 400 /uL (0-900); Monocytes Percent Auto 6.4 % (3-14); Neutrophils Absolute Auto 4100 /uL (1500-7000); Neutrophils Percent Auto 65.2 % (50-75); Platelet Count 333 X10^3/uL (150-400); Red Blood Cell Count 4.56 X10^6/uL (4.0-5.2); Red Cell Distribution Width 15.4 % (11.6-14.8); White Blood Cell Count 6.2 X10^3/uL (4.5-11.0)
[2023-04-27 11:32] LABS: Alanine Aminotransferase 18 IU/L (<35); Albumin 5.1 g/dL (3.5-5.0); Albumin Globulin Ratio 1.5 (1.0-2.8); Alkaline Phosphatase 62 U/L (38-126); Aspartate Aminotransferase 23 IU/L (14-36); BUN Creatinine Ratio 29.8 (6-22); Bilirubin Total 0.7 mg/dL (0.2-1.3); Blood Urea Nitrogen 17 mg/dL (7-17); Calcium 9.5 mg/dL (8.4-10.2); Carbon Dioxide 27 mmol/L (22-32); Chloride 104 mmol/L (98-107); Estimated Glomerular Filt Rate > 60 mL/min (>60); Globulin 3.4 g/dL (1.7-4.1); Glucose 132 mg/dL (70-100); HEMOLYSIS < 15 (0-50); Lipase 81 U/L (23-300); Sodium 140 mmol/L (137-145); Total Protein 8.5 g/dL (6.3-8.2)
--- NOTE | 2023-04-27 14:04 | DI.US.S_ITS ---
PROCEDURE: US ABDOMEN LIMITED INDICATIONS: 5 WEEK POST-OP LAP HÉCTOR ABD. PAIN TECHNIQUE: Real-time focused scanning was performed of the abdomen, with image documentation. COMPARISON: [facility], , US ABDOMEN LIMITED, 03/19/2023, 21:05. FINDINGS: Visualized pancreas is unremarkable sonographically. No biliary ductal dilation demonstrated. Extrahepatic bile duct measures 3 mm. Liver length of 12.6 cm. The liver is echogenic. Patient is post cholecystectomy. An irregular fluid collection containing debris is visualized in the gallbladder fossa, 3.6 x 4.8 x 3.1 cm. IMPRESSION: 1. Prior cholecystectomy. An irregular 4.8 cm fluid collection containing debris is present in the gallbladder fossa, indeterminate for evolving hematoma, abscess, or seroma. Presence or absence of infection within the collection cannot be definitively determined by imaging. 2. The liver is echogenic, a nonspecific finding commonly seen in the setting of steatosis. Dictated by: Bry Pizarro M.D. on 04/27/2023 at 14:58 Approved by: Bry Pizarro M.D. on 04/27/2023 at 15:06
--- NOTE | 2023-04-27 14:09 | ED_ITS ---
HPI - Abdominal Pain <Obdulia Pimentel PA-C - Last Filed: 04/27/23 18:35> General Chief Complaint: Abdominal Pain Stated Complaint: post op problem, rt side pain t-4 Time Seen by Provider: 04/27/23 13:52 Source: patient Mode of arrival: Ambulatory History of Present Illness HPI narrative: 23-year-old female presents with abdominal pain. She had a lap héctor on 03/20/2023 and reportedly was doing well after this. She had a surgical follow- up appointment on 04/14 and, per review of the note, was doing well tolerating a general diet with only occasional pain with fatty foods. She was sore after the surgery when she walked but was doing okay until a couple of days ago when she developed right-sided abdominal pain, nausea, a few episodes of emesis. She has chronic constipation but does not endorse new constipation or diarrhea. She denies fever or chills. Today pain is 6 to 8/10 on the right side with mild radiation to the left side. Related Data Home Medications Medication Instructions Recorded Confirmed naproxen 500 mg tablet 500 mg Q8HR pain 04/27/23 05/12/23 ondansetron 4 mg disintegrating 4 mg PO BID 04/27/23 05/12/23 tablet Allergies Allergy/AdvReac Type Severity Reaction Status Date / Time No Known Drug Allergies Allergy Verified 05/12/23 10:31 Review of Systems <Obdulia Pimentel PA-C - Last Filed: 04/27/23 18:35> Review of Systems ROS Unobtainable: All systems reviewed & are unremarkable except as noted in HPI and below Patient History <Obdulia Pimentel PA-C - Last Filed: 04/27/23 18:35> Medical History ADHD (~2004) Allergies (~2009) Ankle pain (~2018) Anxiety (~2009) Chronic cough (~2017) Eczema (~2002) Foot pain (~2013) Fracture (~2013) Gallstones Glaucoma (~2007) Healthy adult Heart murmur Heavy menstrual period (~2010) Migraines (~2015) Optic nerve disorder Painful menstrual periods (~2010) Raynaud's disease Surgical History Hx laparoscopic cholecystectomy Family History Grandmother Breast cancer Social History household members: significant other lives independently: Yes Smoking Status: Current every day smoker alcohol intake: never Smoking Status: Current every day smoker tobacco type: vaping alcohol intake frequency: holidays/special occasions only Substance Use Type: marijuana Exam <Obdulia Pimentel PA-C - Last Filed: 04/27/23 18:35> Narrative Exam Narrative: GENERAL: 23 year old patient appears stated age. Well-developed patient, in mild distress. NEURO: AOx3. HEAD: Atraumatic. Normocephalic. CARDIOVASCULAR: Regular rate and rhythm without murmurs, gallops, or rubs. RESPIRATORY: Clear to auscultation. Breath sounds equal bilaterally. No wheezes, rales, or rhonchi. GASTROINTESTINAL: Abdomen soft but tender on right side, no distention, no peritoneal signs. Tenderness appears equivalent between right upper and right lower quadrants. Negative CVA tenderness. EXTREMITIES: No edema or joint tenderness. SKIN: No rash or erythema of visible areas Initial Vital Signs Initial Vital Signs: Vital Signs Temperature 98.1 F 04/27/23 10:47 Pulse Rate 99 H 04/27/23 10:47 Respiratory Rate 14 04/27/23 10:47 Blood Pressure 111/64 04/27/23 10:47 Pulse Oximetry 98 04/27/23 10:47 Oxygen Delivery Method Room Air 04/27/23 10:47 <Shane Zavala MD - Last Filed: 05/16/23 21:43> Initial Vital Signs Initial Vital Signs: Vital Signs Temperature 98.1 F 04/27/23 10:47 Pulse Rate 99 H 04/27/23 10:47 Respiratory Rate 14 04/27/23 10:47 Blood Pressure 111/64 04/27/23 10:47 Pulse Oximetry 98 04/27/23 10:47 Oxygen Delivery Method Room Air 04/27/23 10:47 Course <Obdulia Pimentel PA-C - Last Filed: 04/27/23 18:35> Orders Ordered: Discontinued Medications Acetaminophen (Acetaminophen 325 Mg Tablet) 650 mg PO Q6H [facility] Last Admin: 04/28/23 12:20 Dose: Not Given Documented By: Admin: 04/28/23 05:49 Dose: Not Given Documented By: Admin: 04/27/23 23:49 Dose: 650 mg Documented By: Admin: 04/27/23 18:58 Dose: 650 mg Documented By: CINTIA Hydrocodone Bitart/Acetaminophen (Hydrocodone/Acet 5/325 Tablet) 1 tab PO PACUNOW PRN PRN Reason: Mild or moderate pain Benzocaine (Benzocaine/Menthol 1 Jey Pkt) 1 each PO PRN PRN PRN Reason: Sore Throat Bupivacaine HCl (Bupivacaine 0.25% (Pf) Vial) 30 ml INJ NOW ONE Stop: 04/28/23 10:00 Last Admin: 04/28/23 09:59 Dose: 30 ml Documented By: CALIN Fentanyl (Fentanyl 100 Mcg/2 Ml Inj) 0 mcg IV Q5M PRN PRN Reason: Pain, Moderate (4-6) Hydromorphone HCl (Hydromorphone 0.5 Mg Inj) 0.5 mg IV NOW ONE Stop: 04/27/23 14:03 Last Admin: 04/27/23 14:26 Dose: 0.5 mg Documented By: LLOYD Hydromorphone HCl (Hydromorphone 0.5 Mg Inj) 0.5 mg IV NOW ONE Stop: 04/27/23 15:29 Last Admin: 04/27/23 15:37 Dose: 0.5 mg Documented By: LLOYD Hydromorphone HCl (Hydromorphone 0.5 Mg Inj) 0.5 mg IV NOW ONE Stop: 04/27/23 18:21 Last Admin: 04/27/23 18:27 Dose: 0.5 mg Documented By: LLOYD(2) Hydromorphone HCl (Hydromorphone 0.5 Mg Inj) 0.5 mg IV Q2H PRN PRN Reason: Pain, Severe (7-10) Last Admin: 04/28/23 08:01 Dose: 0.5 mg Documented By: Admin: 04/28/23 05:06 Dose: 0.5 mg Documented By: Admin: 04/27/23 21:05 Dose: 0.5 mg Documented By: AT Hydromorphone HCl (Hydromorphone 2 Mg Inj) 0 mg IV Q5M PRN PRN Reason: Pain, Moderate (4-6) Hydromorphone HCl (Hydromorphone 0.5 Mg Inj) 0.5 mg IV Q2H PRN PRN Reason: Pain, Severe (7-10) Hydroxyzine Pamoate (Hydroxyzine Pamoate 25 Mg Capsule) 25 mg PO NOW PRN PRN Reason: Pain, Mild (1-3) Sodium Chloride (Normal Saline 0.9%) 1,000 mls @ 1,000 mls/hr IV BOLUS ONE Stop: 04/27/23 15:01 Last Infusion: 04/27/23 15:38 Dose: 0 mls/hr Documented By: Admin: 04/27/23 14:26 Dose: 1,000 mls/hr Documented By: LLOYD Cefazolin Sodium/Dextrose (Ancef) 100 mls @ 200 mls/hr IV NOW ONE Stop: 04/28/23 09:21 Last Admin: 04/28/23 09:25 Dose: 200 mls/hr Documented By: ELVIE Lactated Ringer's (Lactated Ringers) 1,000 mls @ 125 mls/hr IV NOW ONE Stop: 04/28/23 17:06 Last Admin: 04/28/23 09:07 Dose: 125 mls/hr Documented By: MONISHA Ibuprofen (Ibuprofen 600 Mg Tablet) 600 mg PO Q6H [facility] Last Admin: 04/28/23 12:20 Dose: Not Given Documented By: Admin: 04/28/23 05:49 Dose: Not Given Documented By: Admin: 04/27/23 23:48 Dose: 600 mg Documented By: Admin: 04/27/23 18:59 Dose: 600 mg Documented By: CINTIA Lorazepam (Lorazepam 2 Mg/Ml Inj) 0.25 mg IV NOW PRN PRN Reason: Anxiety Meperidine HCl (Meperidine 50 Mg/Ml Inj) 12.5 mg IV PACUNOW PRN PRN Reason: Mild pain or shivering Metoclopramide HCl (Metoclopramide 10 Mg/2 Ml Inj) 10 mg IV NOW PRN PRN Reason: Nausea And Vomiting Last Admin: 04/28/23 10:30 Dose: 10 mg Documented By: TC Naloxone HCl (Naloxone 0.4 Mg/Ml Vial) 0.2 mg IV Q2MIN PRN PRN Reason: Opiate Reversal Naloxone HCl (Naloxone 0.4 Mg/Ml Vial) 0.2 mg IV Q2MIN PRN PRN Reason: Opiate Reversal Ondansetron HCl (Ondansetron 4 Mg/2 Ml Inj) 4 mg IV NOW PRN PRN Reason: Nausea And Vomiting Last Admin: 04/27/23 11:12 Dose: 4 mg Documented By: KATTY Ondansetron HCl (Ondansetron 4 Mg/2 Ml Inj) 4 mg IV Q4HR PRN PRN Reason: Nausea And Vomiting Last Admin: 04/27/23 22:30 Dose: 4 mg Documented By: AT Ondansetron HCl (Ondansetron 4 Mg/2 Ml Inj) 4 mg IV NOW PRN PRN Reason: Nausea And Vomiting Ondansetron HCl (Ondansetron 4 Mg Odt) 4 mg SL NOW ONE Stop: 04/28/23 12:47 Last Admin: 04/28/23 12:52 Dose: 4 mg Documented By: MM Oxycodone HCl (Oxycodone Ir 5 Mg Tablet) 5 mg PO Q3H PRN PRN Reason: Pain, Moderate (4-6) Last Admin: 04/27/23 23:51 Dose: 5 mg Documented By: Admin: 04/27/23 19:58 Dose: 5 mg Documented By: LUIS Oxycodone HCl (Oxycodone Ir 5 Mg Tablet) 5 mg PO PACUNOW PRN PRN Reason: Mild or moderate pain Oxycodone/Acetaminophen (Oxycodone/Acetaminophen 5/325 Tablet) 1 tab PO PACUNOW PRN PRN Reason: Mild or Moderate Pain Last Admin: 04/28/23 10:44 Dose: 1 tab Documented By: TC Vital Signs Vital signs: Vital Signs - 8 hr 04/27/23 10:47 04/27/23 13:09 04/27/23 13:10 Temperature 98.1 F Pulse Rate 99 H 83 Respiratory Rate 14 Blood Pressure 111/64 102/63 Pulse Oximetry 98 97 Oxygen Delivery Method Room Air 04/27/23 13:10 04/27/23 13:30 04/27/23 13:30 Temperature Pulse Rate 79 81 Respiratory Rate Blood Pressure 100/57 L Pulse Oximetry 98 98 Oxygen Delivery Method 04/27/23 14:00 04/27/23 14:00 04/27/23 14:01 Temperature Pulse Rate 67 Respiratory Rate Blood Pressure 83/67 L 91/56 L Pulse Oximetry 99 Oxygen Delivery Method 04/27/23 14:01 04/27/23 14:30 04/27/23 14:30 Temperature Pulse Rate 74 75 Respiratory Rate Blood Pressure 106/67 Pulse Oximetry 99 99 Oxygen Delivery Method 04/27/23 14:45 04/27/23 14:45 04/27/23 15:00 Temperature Pulse Rate 67 Respiratory Rate Blood Pressure 102/66 100/61 Pulse Oximetry 98 Oxygen Delivery Method 04/27/23 15:00 04/27/23 15:15 04/27/23 15:15 Temperature Pulse Rate 72 62 Respiratory Rate Blood Pressure 105/65 Pulse Oximetry 97 98 Oxygen Delivery Method 04/27/23 15:30 04/27/23 15:30 04/27/23 15:45 Temperature Pulse Rate 68 Respiratory Rate Blood Pressure 104/54 L 122/66 Pulse Oximetry 98 Oxygen Delivery Method 04/27/23 15:45 04/27/23 16:09 04/27/23 16:10 Temperature Pulse Rate 76 68 Respiratory Rate Blood Pressure 142/68 H Pulse Oximetry 99 95 Oxygen Delivery Method 04/27/23 16:10 04/27/23 16:15 04/27/23 16:15 Temperature Pulse Rate 68 74 Respiratory Rate Blood Pressure 114/58 L Pulse Oximetry 99 97 Oxygen Delivery Method 04/27/23 16:30 04/27/23 16:30 04/27/23 16:45 Temperature Pulse Rate 67 Respiratory Rate Blood Pressure 116/61 121/74 Pulse Oximetry 99 Oxygen Delivery Method 04/27/23 16:45 04/27/23 17:00 04/27/23 17:00 Temperature Pulse Rate 65 66 Respiratory Rate Blood Pressure 117/66 Pulse Oximetry 99 99 Oxygen Delivery Method 04/27/23 17:15 04/27/23 17:15 04/27/23 17:30 Temperature Pulse Rate 71 76 Respiratory Rate Blood Pressure 106/69 Pulse Oximetry 100 99 Oxygen Delivery Method 04/27/23 17:45 04/27/23 17:45 04/27/23 17:59 Temperature Pulse Rate 69 88 Respiratory Rate Blood Pressure 120/72 Pulse Oximetry 98 99 Oxygen Delivery Method 04/27/23 18:00 04/27/23 18:00 04/27/23 18:15 Temperature Pulse Rate 87 74 Respiratory Rate Blood Pressure 123/80 Pulse Oximetry 99 98 Oxygen Delivery Method 04/27/23 18:15 Temperature Pulse Rate Respiratory Rate Blood Pressure 139/86 Pulse Oximetry Oxygen Delivery Method <Shane Zavala MD - Last Filed: 05/16/23 21:43> Orders Ordered: Discontinued Medications Acetaminophen (Acetaminophen 325 Mg Tablet) 650 mg PO Q6H [facility] Last Admin: 04/28/23 12:20 Dose: Not Given Documented By: Admin: 04/28/23 05:49 Dose: Not Given Documented By: Admin: 04/27/23 23:49 Dose: 650 mg Documented By: Admin: 04/27/23 18:58 Dose: 650 mg Documented By: CTS Hydrocodone Bitart/Acetaminophen (Hydrocodone/Acet 5/325 Tablet) 1 tab PO PACUNOW PRN PRN Reason: Mild or moderate pain Benzocaine (Benzocaine/Menthol 1 Jey Pkt) 1 each PO PRN PRN PRN Reason: Sore Throat Bupivacaine HCl (Bupivacaine 0.25% (Pf) Vial) 30 ml INJ NOW ONE Stop: 04/28/23 10:00 Last Admin: 04/28/23 09:59 Dose: 30 ml Documented By: CALIN Fentanyl (Fentanyl 100 Mcg/2 Ml Inj) 0 mcg IV Q5M PRN PRN Reason: Pain, Moderate (4-6) Hydromorphone HCl (Hydromorphone 0.5 Mg Inj) 0.5 mg IV NOW ONE Stop: 04/27/23 14:03 Last Admin: 04/27/23 14:26 Dose: 0.5 mg Documented By: LLOYD Hydromorphone HCl (Hydromorphone 0.5 Mg Inj) 0.5 mg IV NOW ONE Stop: 04/27/23 15:29 Last Admin: 04/27/23 15:37 Dose: 0.5 mg Documented By: LLOYD Hydromorphone HCl (Hydromorphone 0.5 Mg Inj) 0.5 mg IV NOW ONE Stop: 04/27/23 18:21 Last Admin: 04/27/23 18:27 Dose: 0.5 mg Documented By: LLOYD(2) Hydromorphone HCl (Hydromorphone 0.5 Mg Inj) 0.5 mg IV Q2H PRN PRN Reason: Pain, Severe (7-10) Last Admin: 04/28/23 08:01 Dose: 0.5 mg Documented By: Admin: 04/28/23 05:06 Dose: 0.5 mg Documented By: Admin: 04/27/23 21:05 Dose: 0.5 mg Documented By: AT Hydromorphone HCl (Hydromorphone 2 Mg Inj) 0 mg IV Q5M PRN PRN Reason: Pain, Moderate (4-6) Hydromorphone HCl (Hydromorphone 0.5 Mg Inj) 0.5 mg IV Q2H PRN PRN Reason: Pain, Severe (7-10) Hydroxyzine Pamoate (Hydroxyzine Pamoate 25 Mg Capsule) 25 mg PO NOW PRN PRN Reason: Pain, Mild (1-3) Sodium Chloride (Normal Saline 0.9%) 1,000 mls @ 1,000 mls/hr IV BOLUS ONE Stop: 04/27/23 15:01 Last Infusion: 04/27/23 15:38 Dose: 0 mls/hr Documented By: Admin: 04/27/23 14:26 Dose: 1,000 mls/hr Documented By: LLOYD Cefazolin Sodium/Dextrose (Ancef) 100 mls @ 200 mls/hr IV NOW ONE Stop: 04/28/23 09:21 Last Admin: 04/28/23 09:25 Dose: 200 mls/hr Documented By: ELVIE Lactated Ringer's (Lactated Ringers) 1,000 mls @ 125 mls/hr IV NOW ONE Stop: 04/28/23 17:06 Last Admin: 04/28/23 09:07 Dose: 125 mls/hr Documented By: MONISHA Ibuprofen (Ibuprofen 600 Mg Tablet) 600 mg PO Q6H [facility] Last Admin: 04/28/23 12:20 Dose: Not Given Documented By: Admin: 04/28/23 05:49 Dose: Not Given Documented By: Admin: 04/27/23 23:48 Dose: 600 mg Documented By: Admin: 04/27/23 18:59 Dose: 600 mg Documented By: CINTIA Lorazepam (Lorazepam 2 Mg/Ml Inj) 0.25 mg IV NOW PRN PRN Reason: Anxiety Meperidine HCl (Meperidine 50 Mg/Ml Inj) 12.5 mg IV PACUNOW PRN PRN Reason: Mild pain or shivering Metoclopramide HCl (Metoclopramide 10 Mg/2 Ml Inj) 10 mg IV NOW PRN PRN Reason: Nausea And Vomiting Last Admin: 04/28/23 10:30 Dose: 10 mg Documented By: RUI Naloxone HCl (Naloxone 0.4 Mg/Ml Vial) 0.2 mg IV Q2MIN PRN PRN Reason: Opiate Reversal Naloxone HCl (Naloxone 0.4 Mg/Ml Vial) 0.2 mg IV Q2MIN PRN PRN Reason: Opiate Reversal Ondansetron HCl (Ondansetron 4 Mg/2 Ml Inj) 4 mg IV NOW PRN PRN Reason: Nausea And Vomiting Last Admin: 04/27/23 11:12 Dose: 4 mg Documented By: KATTY Ondansetron HCl (Ondansetron 4 Mg/2 Ml Inj) 4 mg IV Q4HR PRN PRN Reason: Nausea And Vomiting Last Admin: 04/27/23 22:30 Dose: 4 mg Documented By: IVY Ondansetron HCl (Ondansetron 4 Mg/2 Ml Inj) 4 mg IV NOW PRN PRN Reason: Nausea And Vomiting Ondansetron HCl (Ondansetron 4 Mg Odt) 4 mg SL NOW ONE Stop: 04/28/23 12:47 Last Admin: 04/28/23 12:52 Dose: 4 mg Documented By: KASSANDRA Oxycodone HCl (Oxycodone Ir 5 Mg Tablet) 5 mg PO Q3H PRN PRN Reason: Pain, Moderate (4-6) Last Admin: 04/27/23 23:51 Dose: 5 mg Documented By: Admin: 04/27/23 19:58 Dose: 5 mg Documented By: LUIS Oxycodone HCl (Oxycodone Ir 5 Mg Tablet) 5 mg PO PACUNOW PRN PRN Reason: Mild or moderate pain Oxycodone/Acetaminophen (Oxycodone/Acetaminophen 5/325 Tablet) 1 tab PO PACUNOW PRN PRN Reason: Mild or Moderate Pain Last Admin: 04/28/23 10:44 Dose: 1 tab Documented By: RUI Vital Signs Vital signs: Vital Signs - 8 hr 04/27/23 10:47 04/27/23 13:09 04/27/23 13:10 Temperature 98.1 F Pulse Rate 99 H 83 Respiratory Rate 14 Blood Pressure 111/64 102/63 Pulse Oximetry 98 97 Oxygen Delivery Method Room Air 04/27/23 13:10 04/27/23 13:30 04/27/23 13:30 Temperature Pulse Rate 79 81 Respiratory Rate Blood Pressure 100/57 L Pulse Oximetry 98 98 Oxygen Delivery Method 04/27/23 14:00 04/27/23 14:00 04/27/23 14:01 Temperature Pulse Rate 67 Respiratory Rate Blood Pressure 83/67 L 91/56 L Pulse Oximetry 99 Oxygen Delivery Method 04/27/23 14:01 04/27/23 14:30 04/27/23 14:30 Temperature Pulse Rate 74 75 Respiratory Rate Blood Pressure 106/67 Pulse Oximetry 99 99 Oxygen Delivery Method 04/27/23 14:45 04/27/23 14:45 04/27/23 15:00 Temperature Pulse Rate 67 Respiratory Rate Blood Pressure 102/66 100/61 Pulse Oximetry 98 Oxygen Delivery Method 04/27/23 15:00 04/27/23 15:15 04/27/23 15:15 Temperature Pulse Rate 72 62 Respiratory Rate Blood Pressure 105/65 Pulse Oximetry 97 98 Oxygen Delivery Method 04/27/23 15:30 04/27/23 15:30 04/27/23 15:45 Temperature Pulse Rate 68 Respiratory Rate Blood Pressure 104/54 L 122/66 Pulse Oximetry 98 Oxygen Delivery Method 04/27/23 15:45 04/27/23 16:09 04/27/23 16:10 Temperature Pulse Rate 76 68 Respiratory Rate Blood Pressure 142/68 H Pulse Oximetry 99 95 Oxygen Delivery Method 04/27/23 16:10 04/27/23 16:15 04/27/23 16:15 Temperature Pulse Rate 68 74 Respiratory Rate Blood Pressure 114/58 L Pulse Oximetry 99 97 Oxygen Delivery Method 04/27/23 16:30 04/27/23 16:30 04/27/23 16:45 Temperature Pulse Rate 67 Respiratory Rate Blood Pressure 116/61 121/74 Pulse Oximetry 99 Oxygen Delivery Method 04/27/23 16:45 04/27/23 17:00 04/27/23 17:00 Temperature Pulse Rate 65 66 Respiratory Rate Blood Pressure 117/66 Pulse Oximetry 99 99 Oxygen Delivery Method 04/27/23 17:15 04/27/23 17:15 04/27/23 17:30 Temperature Pulse Rate 71 76 Respiratory Rate Blood Pressure 106/69 Pulse Oximetry 100 99 Oxygen Delivery Method 04/27/23 17:45 04/27/23 17:45 04/27/23 17:59 Temperature Pulse Rate 69 88 Respiratory Rate Blood Pressure 120/72 Pulse Oximetry 98 99 Oxygen Delivery Method 04/27/23 18:00 04/27/23 18:00 04/27/23 18:15 Temperature Pulse Rate 87 74 Respiratory Rate Blood Pressure 123/80 Pulse Oximetry 99 98 Oxygen Delivery Method 04/27/23 18:15 Temperature Pulse Rate Respiratory Rate Blood Pressure 139/86 Pulse Oximetry Oxygen Delivery Method MDM - Abdominal Pain <Obdulia Pimentel PA-C - Last Filed: 04/27/23 18:35> Lab Data 04/27/23 11:10 04/27/23 11:10 Labs: Lab Results 04/27/23 04/27/23 Range/Units 11:10 11:10 WBC 6.2 (4.5-11.0) X10^3/uL RBC 4.56 (4.0-5.2) X10^6/uL Hgb 11.7 L (12.0-16.0) g/dL Hct 36.3 (36-46) % MCV 79.7 L (80-100) fL MCH 25.7 L (26-34) PG MCHC 32.3 (30-36) % RDW 15.4 H (11.6-14.8) % Plt Count 333 (150-400) X10^3/uL Neut % (Auto) 65.2 (50-75) % Lymph % (Auto) 26.8 (25-40) % [place] % (Auto) 6.4 (3-14) % Eos % (Auto) 1.0 L (2-4) % Baso % (Auto) 0.6 (0-2) % Neut # (Auto) 4100 (4731-2309) /uL Lymph # (Auto) 1700 (9444-5480) /uL [place] # (Auto) 400 (0-900) /uL Eos # (Auto) 100 (0-450) /uL Baso # (Auto) 0 (0-100) /uL Sodium 140 (137-145) mmol/L Potassium 4.0 (3.4-5.1) mmol/L Chloride 104 (98-107) mmol/L Carbon Dioxide 27 (22-32) mmol/L BUN 17 (7-17) mg/dL Creatinine 0.57 (0.52-1.04) mg/dL Estimated GFR > 60 (>60) mL/min BUN/Creatinine Ratio 29.8 H (6-22) Glucose 132 H (70-100) mg/dL Calcium 9.5 (8.4-10.2) mg/dL Total Bilirubin 0.7 (0.2-1.3) mg/dL AST 23 (14-36) IU/L ALT 18 (<35) IU/L Alkaline Phosphatase 62 (38-126) U/L Total Protein 8.5 H (6.3-8.2) g/dL Albumin 5.1 H (3.5-5.0) g/dL Globulin 3.4 (1.7-4.1) g/dL Albumin/Globulin Ratio 1.5 (1.0-2.8) Lipase 81 (23-300) U/L Point of care testing: Point of Care Testing Test Results Negative Urine Dip Bedside Urine Glucose Negative Bedside Urine Bilirubin - Negative Bedside Urine Ketone - Negative Urine Specific [place] 1.010 Bedside Urine Occult Blood - Negative Bedside Urine pH 8.0 Bedside Urine Protein - Negative Bedside Urine Urobilinogen - Negative Bedside Urine Nitrite - Negative Bedside Urine Leukocytes - Negative Esterase Imaging Data US - abdomen: Radiologist's Impression: PROCEDURE: US ABDOMEN LIMITED ? INDICATIONS:? 5 WEEK POST-OP LAP HÉCTOR ABD. PAIN ? TECHNIQUE:? Real-time focused scanning was performed of the abdomen, with image documentation.? ? COMPARISON:? [facility], , US ABDOMEN LIMITED, 03/19/2023, 21:05. ? FINDINGS:? Visualized pancreas is unremarkable sonographically.? No biliary ductal dilation demonstrated.? Extrahepatic bile duct measures 3 mm.? Liver length of 12.6 cm. The liver is echogenic.? Patient is post cholecystectomy.? An irregular fluid collection containing debris is visualized in the gallbladder fossa, 3.6 x 4.8 x 3.1 cm. ? IMPRESSION:? 1. Prior cholecystectomy.? An irregular 4.8 cm fluid collection containing debris is present in the gallbladder fossa, indeterminate for evolving hematoma, abscess, or seroma.? Presence or absence of infection within the collection cannot be definitively determined by imaging. 2. The liver is echogenic, a nonspecific finding commonly seen in the setting of steatosis.? ? ? Dictated by: Bry Pizarro M.D. on 04/27/2023 at 14:58 ? ? Approved by: Bry Pizarro M.D. on 04/27/2023 at 15:06 CT scan - abdomen/pelvis: Radiologist's Impression: PROCEDURE:? CT ABDOMEN PELVIS W CON ? INDICATIONS:? right side abd pain, 5 weeks post lap héctor ? TECHNIQUE:? After the administration of intravenous contrast, axial sections acquired from the lung bases to the pubic symphysis.? Coronal and sagittal reformats were performed.? For radiation dose reduction, the following was used:? automated exposure control, adjustment of mA and/or kV according to patient size.? ? COMPARISON:? [facility], ABDOMEN LIMITED, 04/27/2023, 14:18.? [facility], , ABDOMEN LIMITED, 03/19/2023, 21:05.? [facility], CT, CT ABDOMEN PELVIS W CON, 03/12/2023, 15:14. ? FINDINGS:? Image quality:? Excellent.? ? Lung bases:? Unremarkable. Heart:? No significant findings. ? ABDOMEN: Liver:? Unremarkable.? ? Gallbladder:? Surgically absent.? However, in the gallbladder fossa, there is a thick-walled collection measuring 3.0 x 3.6 cm in diameter.? ? Biliary ducts:? Unremarkable.? ? Pancreas:? Unremarkable.? ? Spleen:? Unremarkable.? ? Adrenal Glands:? Unremarkable.? ? Kidneys and Ureters:? Unremarkable.? ? ? Stomach and Bowel:? Mild distal rectal wall thickening.? Stomach, small bowel loops, and colon are otherwise unremarkable.? Peritoneum:? No abnormal intraperitoneal fluid.? No free air.? ? Ventral Wall: ? No hernias.? Abdominal Nodes:? No retroperitoneal or mesenteric adenopathy by size criteria.? Vessels:? Aorta and inferior vena cava are normal in size.? ? PELVIS: Pelvic Organs:? Bilateral cystic adnexae.? Mild pelvic ascites, slightly greater than physiologic fluid.? Bladder:? Unremarkable.? ? Pelvic Nodes: No enlarged lymph nodes.? Miscellaneous: No hernias are seen. ? ? ? Bones:? Unremarkable.? IMPRESSION:? ? 1. Recent cholecystectomy with postoperative fluid collection in the gallbladder fossa.? Differential includes postoperative hematoma versus postoperative abscess or biloma. ? 2. Very mild pelvic ascites. ? 3. Question mild proctitis. ? Comment:? The fluid collection would be amenable to CT-guided drainage or aspiration.? ? ? Dictated by: Tao Negron M.D. on 04/27/2023 at 16:52 ? ? Approved by: Tao Negron M.D. on 04/27/2023 at 16:56 MDM Narrative Medical decision making narrative: Multiple etiologies for patient's symptoms considered include, but not limited to: Bile leak, postoperative bleeding, Bowel obstruction, kidney stone, diverticulitis, appendicitis, pancreatitis, postoperative pain. Labs without clinically significant abnormalities, and without evidence of infection. Urine is clear without signs of infection or blood making kidney stone less likely. Lipase is normal making pancreatitis less likely. Liver enzymes are normal today. Abdominal ultrasound notable for fluid collection in the gallbladder fossa. CT abdomen pelvis with contrast obtained and shows a discrete thick walled fluid collection 3 x 3-1/[address] Doe who recommends transfer to [facility] for CT-guided aspiration. Unable to obtain accepting provider at [facility], discussed again with Dr. Doe who will admit to [facility] and consult Radiology tomorrow. Patient in agreement with plan. Patient with 9 to 10/10 pain, requiring frequent doses of hydromorphone. <Shane Zavala MD - Last Filed: 05/16/23 21:43> Lab Data Labs: Lab Results 04/27/23 04/27/23 Range/Units 11:10 11:10 WBC 6.2 (4.5-11.0) X10^3/uL RBC 4.56 (4.0-5.2) X10^6/uL Hgb 11.7 L (12.0-16.0) g/dL Hct 36.3 (36-46) % MCV 79.7 L (80-100) fL MCH 25.7 L (26-34) PG MCHC 32.3 (30-36) % RDW 15.4 H (11.6-14.8) % Plt Count 333 (150-400) X10^3/uL Neut % (Auto) 65.2 (50-75) % Lymph % (Auto) 26.8 (25-40) % [place] % (Auto) 6.4 (3-14) % Eos % (Auto) 1.0 L (2-4) % Baso % (Auto) 0.6 (0-2) % Neut # (Auto) 4100 (8647-1357) /uL Lymph # (Auto) 1700 (2378-6887) /uL [place] # (Auto) 400 (0-900) /uL Eos # (Auto) 100 (0-450) /uL Baso # (Auto) 0 (0-100) /uL Sodium 140 (137-145) mmol/L Potassium 4.0 (3.4-5.1) mmol/L Chloride 104 (98-107) mmol/L Carbon Dioxide 27 (22-32) mmol/L BUN 17 (7-17) mg/dL Creatinine 0.57 (0.52-1.04) mg/dL Estimated GFR > 60 (>60) mL/min BUN/Creatinine Ratio 29.8 H (6-22) Glucose 132 H (70-100) mg/dL Calcium 9.5 (8.4-10.2) mg/dL Total Bilirubin 0.7 (0.2-1.3) mg/dL AST 23 (14-36) IU/L ALT 18 (<35) IU/L Alkaline Phosphatase 62 (38-126) U/L Total Protein 8.5 H (6.3-8.2) g/dL Albumin 5.1 H (3.5-5.0) g/dL Globulin 3.4 (1.7-4.1) g/dL Albumin/Globulin Ratio 1.5 (1.0-2.8) Lipase 81 (23-300) U/L Point of care testing: Point of Care Testing Test Results Negative Urine Dip Bedside Urine Glucose Negative Bedside Urine Bilirubin - Negative Bedside Urine Ketone - Negative Urine Specific [place] 1.010 Bedside Urine Occult Blood - Negative Bedside Urine pH 8.0 Bedside Urine Protein - Negative Bedside Urine Urobilinogen - Negative Bedside Urine Nitrite - Negative Bedside Urine Leukocytes - Negative Esterase Discharge Plan Departure Patient Disposition: Admitted As Inpatient Clinical Impression: Fluid collection at surgical site Admit Date/Time: 04/27/23 18:29 Admit Provider: Alexey Doe <Shane Zavala MD - Last Filed: 05/16/23 21:43> Cosign ED Attending Cosignature Attestation: I was immediately available in the department for consultation. This do cumentation has been reviewed and I agree with assessment and plan. Supervised by Shane Zavala MD
[2023-04-27] MEDS: SODIUM CHLORIDE 0.9% 1,000 ML 1000 ML IV (14:26)
[2023-04-27] MEDS: HYDROMORPHONE 0.5 MG INJ IV ×4 (14:26→21:05)
--- NOTE | 2023-04-27 15:40 | DI.CT.S_ITS ---
PROCEDURE: CT ABDOMEN PELVIS W CON INDICATIONS: right side abd pain, 5 weeks post lap prisca TECHNIQUE: After the administration of intravenous contrast, axial sections acquired from the lung bases to the pubic symphysis. Coronal and sagittal reformats were performed. For radiation dose reduction, the following was used: automated exposure control, adjustment of mA and/or kV according to patient size. COMPARISON: [facility], US, US ABDOMEN LIMITED, 04/27/2023, 14:18. [facility], US, US ABDOMEN LIMITED, 03/19/2023, 21:05. [facility], CT, CT ABDOMEN PELVIS W CON, 03/12/2023, 15:14. FINDINGS: Image quality: Excellent. Lung bases: Unremarkable. Heart: No significant findings. ABDOMEN: Liver: Unremarkable. Gallbladder: Surgically absent. However, in the gallbladder fossa, there is a thick-walled collection measuring 3.0 x 3.6 cm in diameter. Biliary ducts: Unremarkable. Pancreas: Unremarkable. Spleen: Unremarkable. Adrenal Glands: Unremarkable. Kidneys and Ureters: Unremarkable. Stomach and Bowel: Mild distal rectal wall thickening. Stomach, small bowel loops, and colon are otherwise unremarkable. Peritoneum: No abnormal intraperitoneal fluid. No free air. Ventral Wall: No hernias. Abdominal Nodes: No retroperitoneal or mesenteric adenopathy by size criteria. Vessels: Aorta and inferior vena cava are normal in size. PELVIS: Pelvic Organs: Bilateral cystic adnexae. Mild pelvic ascites, slightly greater than physiologic fluid. Bladder: Unremarkable. Pelvic Nodes: No enlarged lymph nodes. Miscellaneous: No hernias are seen. Bones: Unremarkable. IMPRESSION: 1. Recent cholecystectomy with postoperative fluid collection in the gallbladder fossa. Differential includes postoperative hematoma versus postoperative abscess or biloma. 2. Very mild pelvic ascites. 3. Question mild proctitis. Comment: The fluid collection would be amenable to CT-guided drainage or aspiration. Dictated by: Tao Negron M.D. on 04/27/2023 at 16:52 Approved by: Tao Nergon M.D. on 04/27/2023 at 16:56
[2023-04-27] MEDS: ACETAMINOPHEN 325 MG TABLET 650 MG PO ×2 (18:58→23:49)
[2023-04-27] MEDS: IBUPROFEN 600 MG TABLET PO ×2 (18:59→23:48)
[2023-04-27] MEDS: OXYCODONE IR 5 MG TABLET PO ×2 (19:58→23:51)
[2023-04-28] VITALS (17 sets, daily range): BP systolic 90–124; BP diastolic 44–79; PULSE 59–89; RESP 10–20; TEMP 35.7–36.4; O2SAT 95–100; BMI 21.7
[2023-04-28] MEDS: HYDROMORPHONE 0.5 MG INJ IV ×2 (05:06→08:01)
--- NOTE | 2023-04-28 08:52 | P.HP_ITS ---
History of Present Illness History of Present Illness Date Patient Seen: 04/28/23 Time Patient Seen: 08:52 Chief complaint: post op problem, rt side pain t-4 Narrative: 23-year-old healthy woman who presented with right upper quadrant pain. She is 1 month status post laparoscopic cholecystectomy for acute cholecystitis. On arrival to the emergency department at [facility] she is afebrile white blood cell count 6.2 normal liver function tests. CT abdomen pelvis demonstrates a 4 cm thick walled fluid collection in the gallbladder fossa. [facility]LY [facility] Medical History ADHD (~2004) Allergies (~2009) Ankle pain (~2018) Anxiety (~2009) Chronic cough (~2017) Eczema (~2002) Foot pain (~2013) Fracture (~2013) Gallstones Glaucoma (~2007) Healthy adult Heart murmur Heavy menstrual period (~2010) Migraines (~2015) Optic nerve disorder Painful menstrual periods (~2010) Raynaud's disease Surgical History Hx laparoscopic cholecystectomy Family History Grandmother Breast cancer Social History household members: significant other lives independently: Yes Smoking Status: Current every day smoker alcohol intake: current Meds Home Medications and Allergies Home Medications Medication Instructions Recorded Confirmed Type naproxen 500 mg tablet 500 mg Q8HR pain 04/27/23 04/27/23 History ondansetron 4 mg disintegrating 4 mg PO BID 04/27/23 04/27/23 History tablet Allergies Allergy/AdvReac Type Severity Reaction Status Date / Time No Known Drug Allergies Allergy Verified 04/27/23 10:47 Exam Vital Signs (past 8 hours): - 04/28/23 02:00 04/28/23 05:00 04/28/23 05:46 Temperature 96.6 F L Pulse Rate 73 Respiratory Rate 17 Blood Pressure 115/60 Pulse Oximetry 100 100 100 Oxygen Delivery Method Room Air Room Air Oxygen Flow Rate 0 Oxygen Delivery Method Room Air Oxygen Flow Rate 0 Narrative Exam Narrative: General adult woman alert oriented no acute distress Chest nonlabored respiration Abdomen tender right upper quadrant. Laparoscopic port incisions well healed Objective Labs 04/27/23 11:10 04/27/23 11:10 Labs: Laboratory Results - last 24 hr 04/27/23 04/27/23 11:10 11:10 WBC 6.2 RBC 4.56 Hgb 11.7 L Hct 36.3 MCV 79.7 L MCH 25.7 L MCHC 32.3 RDW 15.4 H Plt Count 333 Neut % (Auto) 65.2 Lymph % (Auto) 26.8 [place] % (Auto) 6.4 Eos % (Auto) 1.0 L Baso % (Auto) 0.6 Neut # (Auto) 4100 Lymph # (Auto) 1700 [place] # (Auto) 400 Eos # (Auto) 100 Baso # (Auto) 0 Sodium 140 Potassium 4.0 Chloride 104 Carbon Dioxide 27 BUN 17 Creatinine 0.57 Estimated GFR > 60 BUN/Creatinine Ratio 29.8 H Glucose 132 H Calcium 9.5 Total Bilirubin 0.7 AST 23 ALT 18 Alkaline Phosphatase 62 Total Protein 8.5 H Albumin 5.1 H Globulin 3.4 Albumin/Globulin Ratio 1.5 Lipase 81 Assessment & Plan Assessment and plan (1) Fluid collection at surgical site: Status: Acute Assessment & Plan narrative: 23-year-old woman 1 month status post laparoscopic cholecystectomy for acute cholecystitis with a fluid collection within the gallbladder fossa. CT abdomen pelvis laboratory studies personally reviewed are remarkable for 4 cm thick- walled fluid collection in the gallbladder fossa likely a retained hematoma or abscess. We discussed management and we discussed either percutaneous drainage or laparoscopic drainage. She has significant anxiety and is concerned that she will not be able to tolerate the percutaneous drainage and therefore she elects to go to the operating room for laparoscopic drainage. Overview of the operation was discussed. Operative risks including hemorrhage, infection, damage to surrounding structures recurrent infection were discussed. Questions have been answered she is in agreement with this plan. She provides her written and verbal consent to proceed.
[2023-04-28] MEDS: LACTATED RINGERS 1,000 ML 125 ML IV (09:07)
[2023-04-28] MEDS: CEFAZOLIN 2 GM/100 ML PREMIX 100 ML IV (09:25)
[2023-04-28] MEDS: BUPIVACAINE 0.25% (PF) VIAL 30 ML INJ (09:59)
--- NOTE | 2023-04-28 10:24 | PM.OP.1 ---
Operative Date/Time/Diagnoses Date of procedure: 04/28/23 Time of procedure: 11:03 Pre-op diagnosis: Intra-abdominal fluid collection Post-op diagnosis: same Procedure & Clinicians Procedure: Diagnostic laparoscopy Laparoscopic-assisted drainage of intra-abdominal fluid collection Same procedure as scheduled: Yes Indications: 23-year-old woman 1 month status post laparoscopic cholecystectomy for acute cholecystitis who has a 4 cm fluid collection in the gallbladder fossa. We discussed interventional radiology versus surgical drainage preference was to proceed with surgical debridement and drainage. Surgeon: Alexey Doe Click Yes if Unassisted: Yes Anesthesia Type: General Operative Notes Findings: 4 cm biloma in gallbladder fossa Specimen(s): other (Intra-abdominal fluid collection) Estimated Blood Loss (mL): 5 Procedure in detail: Patient was brought to the operating room placed supine on the table. Bilateral lower extremity compression devices were applied. General anesthesia was induced and she was intubated with an endotracheal tube. She was then prepped and draped in sterile fashion time-out was performed. The infraumbilical incision was opened the fascia grasped elevated sharply incised the abdomen was entered atraumatically. 12 mm balloon trocar was then placed into the abdomen and pneumoperitoneum was established. Additional working 5 mm ports were placed in the right upper quadrant. Inspection of the abdomen demonstrated omentum adherent to the liver over the gallbladder fossa. The omentum was dissected off of the liver which revealed a 4 cm thick walled fluid collection. This was aspirated, aspirate was consistent in appearance with biloma, and the fluid content was sent for microbiology analysis. This collapsed the fluid collection. The wall of the collection was then debrided and then the cavity was lavaged with sterile saline. Hemostasis was checked and verified. The umbilical incision was then closed with Vicryl in a figure-eight configuration and the skin was closed with Monocryl followed by the application of Dermabond. She tolerated the procedure well was extubated transferred to recovery in stable condition. Complications: none Post-operative Condition: stable Disposition: Acute Care
--- NOTE | 2023-04-28 10:26 | CM.DPNOTE ---
Attempted to see patient this am but already out of room to procedure at 0912. CM team following for progression of DC plan for home with supportive family.
[2023-04-28] MEDS: METOCLOPRAMIDE 10 MG/2 ML INJ IV (10:30)
[2023-04-28] MEDS: OXYCODONE/ACETAMINOPHEN 5/325 TABLET 1 TAB PO (10:44)
[2023-04-28] MEDS: ONDANSETRON 4 MG ODT SL (12:52)
== END 2023-04-28 14:30 | disposition home or self-care (01) | DRG 793 ==
LOC: ED 13:52 → AC 18:30
PROVIDERS: Emergency Medicine; Admitting Provider Surgery; Emergency Provider Physician Assistant; Referring Provider Physician Assistant; Visit Provider Surgery
PROC: 0W9G0ZZ Drainage of Peritoneal Cavity, Open Approach (ICD-10-PCS; CPT 49320; principal; 2023-04-28 09:15)
DX: K91.872 Postprocedural seroma of a digestive system organ or structure following a digestive system procedure (principal)
CPT/HCPCS: 36415; 74177; 76705; 80053; 81003; 81025; 83690; 85025; 87070; 87075; 87205; 96374; 96375; 96376; 99284; J0330; J0690; J1100; J1170; J1885; J2405; J2704; J2765; J3010; J3490; Q9967

== ENCOUNTER 2023-05-20 16:46 | Emergency (ER) | payer OTHER, MEDICAID, SELFPAY ==
[2023-04-27 20:25] VITALS: BMI 21.7
[2023-05-20 17:01] VITALS: BP 113/67; PULSE 100; RESP 16; TEMP 36.9; O2SAT 99
[2023-05-20] MEDS: ONDANSETRON 4 MG ODT SL (17:13)
[2023-05-20 19:23] VITALS: BP 109/59; PULSE 76; RESP 16; O2SAT 99
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
[2023-05-20] MEDS: KETOROLAC 30 MG/ML VIAL 15 MG IV (20:50)
[2023-05-20] MEDS: MORPHINE 4 MG/ML INJ IV (21:29)
[2023-05-20 21:30] VITALS: BP 126/65; PULSE 72; RESP 16; O2SAT 96
[2023-05-20 21:53] LABS: Add Manual Diff / Slide Review NO; Basophils Absolute Auto 100 /uL (0-100); Basophils Percent Auto 0.6 % (0-2); Eosinophils Absolute Auto 0 /uL (0-450); Eosinophils Percent Auto 0.3 % (2-4); Hematocrit 33.8 % (36-46); Lymphocytes Absolute Auto 2600 /uL (1100-4500); Lymphocytes Percent Auto 29.8 % (25-40); Mean Corpuscular HGB Conc 32.5 % (30-36); Mean Corpuscular Hemoglobin 25.3 PG (26-34); Mean Corpuscular Volume 77.9 fL (80-100); Monocytes Absolute Auto 500 /uL (0-900); Monocytes Percent Auto 6.1 % (3-14); Neutrophils Absolute Auto 5600 /uL (1500-7000); Neutrophils Percent Auto 63.2 % (50-75); Platelet Count 353 X10^3/uL (150-400); Red Blood Cell Count 4.34 X10^6/uL (4.0-5.2); Red Cell Distribution Width 16.2 % (11.6-14.8); White Blood Cell Count 8.9 X10^3/uL (4.5-11.0)
[2023-05-20 21:55] LABS: Alanine Aminotransferase 17 IU/L (<35); Albumin 4.7 g/dL (3.5-5.0); Albumin Globulin Ratio 1.4 (1.0-2.8); Alkaline Phosphatase 56 U/L (38-126); Aspartate Aminotransferase 25 IU/L (14-36); BUN Creatinine Ratio 19.4 (6-22); Bilirubin Total 0.8 mg/dL (0.2-1.3); Blood Urea Nitrogen 12 mg/dL (7-17); Calcium 9.2 mg/dL (8.4-10.2); Carbon Dioxide 23 mmol/L (22-32); Chloride 103 mmol/L (98-107); Estimated Glomerular Filt Rate > 60 mL/min (>60); Globulin 3.4 g/dL (1.7-4.1); Glucose 90 mg/dL (70-100); HEMOLYSIS < 15 (0-50); Lipase 62 U/L (23-300); Sodium 137 mmol/L (137-145); Total Protein 8.1 g/dL (6.3-8.2)
[2023-05-20 22:22] VITALS: BP 119/67; PULSE 57; RESP 16; O2SAT 100
[2023-05-20] MEDS: HYDROCODONE/ACET 5/325 TABLET 2 TAB PO (22:37)
[2023-05-20] MEDS: HYDROCODONE/ACET 5/325 PREPACK 1 BOTTLE MISC (22:52)
[2023-05-20 22:58] VITALS: BP 110/55; PULSE 65; RESP 16; O2SAT 100
== END 2023-05-20 22:58 | disposition home or self-care (01) ==
PROVIDERS: Emergency Provider Emergency Medicine
DX: R10.11 Right upper quadrant pain (principal); R00.0 Tachycardia, unspecified; W50.1XXA Accidental kick by another person, initial encounter
CPT/HCPCS: 36415; 74177; 80053; 81003; 81025; 83690; 85025; 96374; 96375; 99284; J1885; J2270; Q9967

== ENCOUNTER 2023-05-26 10:38 | Emergency (ER) | payer OTHER, MEDICAID, SELFPAY ==
[2023-04-27 20:25] VITALS: BMI 21.7
[2023-05-26 10:57] VITALS: BP 104/63; PULSE 91; RESP 15; TEMP 36.6; O2SAT 100
--- NOTE | 2023-05-26 11:14 | DI.US.S_ITS ---
PROCEDURE: US ABDOMEN LIMITED INDICATIONS: RUQ PAIN STATUS POST LAP HÉCTOR AND POST OP INFECTION TECHNIQUE: Real-time focused scanning was performed of the abdomen, with image documentation. COMPARISON: [facility], CT, CT ABDOMEN PELVIS W CON, 05/20/2023, 21:23. [facility], US, US ABDOMEN LIMITED, 04/27/2023, 14:18. FINDINGS: There is a complex fluid collection adjacent to the gallbladder fossa measuring 24 mm diameter. Liver is within normal limits. Gallbladder surgically absent. No biliary ductal dilatation. PancreasIs grossly unremarkable. IMPRESSION: Gallbladder fossa fluid collection, possibly indicating abscess. This is too small to be drained percutaneously. Dictated by: Michelle Mccormick M.D. on 05/26/2023 at 12:08 Approved by: Michelle Mccormick M.D. on 05/26/2023 at 12:08
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
[2023-05-26] MEDS: KETOROLAC 30 MG/ML VIAL 15 MG IM (11:19)
[2023-05-26] MEDS: ACETAMINOPHEN 325 MG TABLET 975 MG PO (11:20)
[2023-05-26 11:33] LABS: Add Manual Diff / Slide Review NO; Basophils Absolute Auto 0 /uL (0-100); Basophils Percent Auto 0.6 % (0-2); Eosinophils Absolute Auto 100 /uL (0-450); Eosinophils Percent Auto 2.5 % (2-4); Hematocrit 35.7 % (36-46); Hemoglobin 11.5 g/dL (12.0-16.0); Lymphocytes Absolute Auto 1500 /uL (1100-4500); Lymphocytes Percent Auto 30.8 % (25-40); Mean Corpuscular HGB Conc 32.3 % (30-36); Mean Corpuscular Hemoglobin 24.9 PG (26-34); Mean Corpuscular Volume 77.2 fL (80-100); Monocytes Absolute Auto 500 /uL (0-900); Monocytes Percent Auto 9.5 % (3-14); Neutrophils Absolute Auto 2800 /uL (1500-7000); Neutrophils Percent Auto 56.6 % (50-75); Platelet Count 291 X10^3/uL (150-400); Red Blood Cell Count 4.62 X10^6/uL (4.0-5.2); Red Cell Distribution Width 15.9 % (11.6-14.8)
[2023-05-26 11:43] LABS: BUN Creatinine Ratio 24.2 (6-22); Blood Urea Nitrogen 15 mg/dL (7-17); Calcium 9.4 mg/dL (8.4-10.2); Carbon Dioxide 24 mmol/L (22-32); Chloride 104 mmol/L (98-107); Estimated Glomerular Filt Rate > 60 mL/min (>60); Glucose 99 mg/dL (70-100); HEMOLYSIS < 15 (0-50); Potassium 4.2 mmol/L (3.4-5.1); Sodium 137 mmol/L (137-145)
[2023-05-26 12:41] LABS: Alanine Aminotransferase 18 IU/L (<35); Albumin 4.7 g/dL (3.5-5.0); Albumin Globulin Ratio 1.8 (1.0-2.8); Alkaline Phosphatase 58 U/L (38-126); Aspartate Aminotransferase 23 IU/L (14-36); Bilirubin Total 0.8 mg/dL (0.2-1.3); Bilirubin Unconjugated 0.7 mg/dL (0.0-1.1); Globulin 2.6 g/dL (1.7-4.1); HEMOLYSIS < 15 (0-50); Lipase 54 U/L (23-300); Total Protein 7.3 g/dL (6.3-8.2)
== END 2023-05-26 13:05 | disposition home or self-care (01) ==
PROVIDERS: Emergency Medicine; Emergency Provider Physician Assistant
DX: T88.8XXA Other specified complications of surgical and medical care, not elsewhere classified, initial encounter (principal)
CPT/HCPCS: 36415; 76705; 80048; 80076; 81003; 81025; 83690; 85025; 96372; 99283; 99284; J1885

== ENCOUNTER 2023-06-22 15:19 | Emergency (ER) | payer OTHER, MEDICAID, SELFPAY ==
[2023-04-27 20:25] VITALS: BMI 21.7
[2023-06-22 15:22] VITALS: BP 113/59; PULSE 89; RESP 20; TEMP 37.2; O2SAT 99; BMI 19.8
--- NOTE | 2023-06-22 16:10 | DI.RAD.S_ITS ---
PROCEDURE: XR CHEST 1V INDICATIONS: chest pain TECHNIQUE: One view of the chest was acquired. COMPARISON: None. FINDINGS: Surgical changes and devices: Right upper quadrant surgical clips. Lungs and pleura: Lungs are clear. No pleural effusions or pneumothorax. Mediastinum: Mediastinal contours appear normal. Heart size is normal. Bones and chest wall: No suspicious bony lesions. Minimal S-shaped scoliotic curvature of the spine Overlying soft tissues appear unremarkable. IMPRESSION: No acute cardiopulmonary process. Dictated by: Antonio Hernandez M.D. on 06/22/2023 at 17:01 Approved by: Antonio Hernandez M.D. on 06/22/2023 at 17:02
[2023-06-22 17:02] LABS: Add Manual Diff / Slide Review NO; Basophils Absolute Auto 100 /uL (0-100); Basophils Percent Auto 0.9 % (0-2); Eosinophils Absolute Auto 100 /uL (0-450); Eosinophils Percent Auto 1.1 % (2-4); Hematocrit 37.1 % (36-46); Hemoglobin 12.2 g/dL (12.0-16.0); Lymphocytes Absolute Auto 1800 /uL (1100-4500); Lymphocytes Percent Auto 25.5 % (25-40); Mean Corpuscular HGB Conc 32.9 % (30-36); Mean Corpuscular Hemoglobin 24.9 PG (26-34); Mean Corpuscular Volume 75.7 fL (80-100); Monocytes Absolute Auto 500 /uL (0-900); Monocytes Percent Auto 7.4 % (3-14); Neutrophils Absolute Auto 4700 /uL (1500-7000); Neutrophils Percent Auto 65.1 % (50-75); Platelet Count 326 X10^3/uL (150-400); Red Blood Cell Count 4.91 X10^6/uL (4.0-5.2); Red Cell Distribution Width 16.9 % (11.6-14.8); White Blood Cell Count 7.2 X10^3/uL (4.5-11.0)
[2023-06-22 17:10] LABS: INR 1.1 (0.9-1.3); Prothrombin Time 12.4 SECONDS (10.1-12.7)
[2023-06-22 17:13] LABS: PTT Partial Thromboplastin Tim 27 SECONDS (26-36)
[2023-06-22 17:14] LABS: Alanine Aminotransferase 15 IU/L (<35); Albumin 4.7 g/dL (3.5-5.0); Albumin Globulin Ratio 1.5 (1.0-2.8); Alkaline Phosphatase 46 U/L (38-126); Aspartate Aminotransferase 20 IU/L (14-36); Bilirubin Total 0.6 mg/dL (0.2-1.3); Blood Urea Nitrogen 12 mg/dL (7-17); Calcium 9.5 mg/dL (8.4-10.2); Carbon Dioxide 24 mmol/L (22-32); Chloride 105 mmol/L (98-107); Creatine Kinase 46 U/L (30-135); Estimated Glomerular Filt Rate > 60 mL/min (>60); Globulin 3.2 g/dL (1.7-4.1); Glucose 92 mg/dL (70-100); HEMOLYSIS 30 (0-50); Lipase 76 U/L (23-300); Magnesium 2.2 mg/dL (1.6-2.3); Potassium 3.9 mmol/L (3.4-5.1); Sodium 138 mmol/L (137-145); Total Protein 7.9 g/dL (6.3-8.2)
[2023-06-22 17:26] LABS: Troponin I < 0.012 ng/mL (0.01-0.034)
[2023-06-22 17:42] VITALS: BP 118/65; PULSE 90; RESP 16; O2SAT 94
--- NOTE | 2023-06-22 18:10 | ED_ITS ---
HPI - Chest Pain General Chief Complaint: Chest Pain Stated Complaint: ABD AND CHEST PAIN, HEAVY CHEST Time Seen by Provider: 06/22/23 18:10 Source: patient Mode of arrival: Ambulatory Limitations: no limitations History of Present Illness HPI narrative: 23-year-old female with history of cholecystectomy this summer but otherwise relatively clean medical history presents with a chief complaint of lower abdominal discomfort that has been present for a few days starting Tuesday morning that seemed to come and go with a mind of its own. There was no obvious provocation or palliation, no radiation of symptoms. No nausea, vomiting or diarrhea. No constipation. She does admit to relatively frequent urination but denies dysuria, urgency or hematuria. She denies any vaginal bleeding or discharge. She is not currently having abdominal discomfort. Earlier today at about 11 this morning she developed some epigastric and chest heaviness that was present for few hours but is now gone. She denies exertional symptoms, obvious provocation or palliation, no radiation of symptoms and no associated symptoms such as dizziness, weakness or lightheadedness. Related Data Home Medications Medication Instructions Recorded Confirmed naproxen 500 mg tablet 500 mg Q8HR pain 04/27/23 05/12/23 ondansetron 4 mg disintegrating 4 mg PO BID 04/27/23 05/12/23 tablet Previous Rx's Medication Instructions Recorded hydrocodone 5 mg-acetaminophen 325 1 tab PO Q8H PRN pain #10 tabs 05/26/23 mg tablet Allergies Allergy/AdvReac Type Severity Reaction Status Date / Time No Known Drug Allergies Allergy Verified 05/26/23 10:57 Review of Systems Review of Systems Narrative: GENERAL: Denies chills, fatigue, malaise, fever, sweats. HEENT: Denies sinus pain, ear pain, sore throat, difficulty swallowing, dizziness. RESPIRATORY: See HPI CARDIOVASCULAR: See HPI GASTROINTESTINAL: See HPI : See HPI MUSCULOSKELETAL: denies weakness, joint pain, or bony pain SKIN: Denies rash, skin lesions, or other NEUROLOGIC: Denies weakness, headache, numbness, change in speech, confusion, seizures, incoordination. PSYCHIATRIC: No concerning psychosocial issues. 12 point review of systems is negative except for those stated above Patient History Medical History Eczema (~2002) Chronic cough (~2018) Allergies (~2010) Anxiety (~2010) Migraines (~2016) ADHD (~2005) Fracture (~2013) Foot pain (~2013) Ankle pain (~2018) Raynaud's disease Optic nerve disorder Glaucoma (~2007) Painful menstrual periods (~2010) Heavy menstrual period (~2010) Gallstones Heart murmur Healthy adult Surgical History Hx laparoscopic cholecystectomy Family History Grandmother Breast cancer Social History household members: significant other lives independently: Yes Smoking Status: Current every day smoker alcohol intake: never Smoking Status: Current every day smoker tobacco type: vaping alcohol intake frequency: holidays/special occasions only Substance Use Type: marijuana Exam Narrative Exam Narrative: GENERAL: [23] year old patient appears stated age. Well-developed patient, in mild distress. HEAD: Atraumatic. Normocephalic. EYES: Pupils equal round and reactive. Extraocular motions intact. No scleral icterus. No injection or drainage. ENT: Nose without bleeding, purulent drainage. Throat without erythema, tonsillar hypertrophy or exudate. Airway patent. NECK: Trachea midline. Non tender CARDIOVASCULAR: Regular rate and rhythm without murmurs, gallops, or rubs. RESPIRATORY: Clear to auscultation. Breath sounds equal bilaterally. No wheezes, rales, or rhonchi. GASTROINTESTINAL: Abdomen soft, mild epigastric pain r, nondistended. EXTREMITIES: No edema or joint tenderness. BACK: Nontender without deformity or crepitance. No flank tenderness. NEURO: AOx3. SKIN: No rash or erythema of visible areas Initial Vital Signs Initial Vital Signs: Vital Signs Temperature 98.9 F 06/22/23 15:22 Pulse Rate 89 06/22/23 15:22 Respiratory Rate 20 06/22/23 15:22 Blood Pressure 113/59 L 06/22/23 15:22 Pulse Oximetry 99 06/22/23 15:22 Oxygen Delivery Method Room Air 06/22/23 15:22 Scores PERC Score Age greater than or equal to 50 years: No Heart rate greater than or equal to 100 bpm: No Room Air O2 Sat less than 95%: No Unilateral leg swelling: No Recent trauma or surgery: Yes Hemoptysis: No Prior PE or DVT: No Hormone Use: No Total PERC Score: 1 Wells' Criteria for PE Clinical signs and symptoms of DVT: No PE is #1 Dx or equally likely: No Heart rate > 100: No Immobilization at least 3 days or surg in previous 4 weeks: No History of PE or DVT: No Hemoptysis: No Malignancy w/Treatment within 6 months or palliative: No Wells' PE Score total: 0 Course Orders Ordered: ED Orders 06/22/23 16:10 XR chest 1V Stat 06/22/23 16:55 Complete Blood Count AUTO DIFF Stat Comprehensive Metabolic Panel Stat D Dimer Stat Lipase Stat Magnesium Stat PTT Partial Thromboplastin Adam Stat Prothrombin Time INR Stat Troponin & CK Cardiac Panel Stat Vital Signs Vital signs: Vital Signs - 8 hr 06/22/23 17:42 06/22/23 19:38 06/22/23 20:38 Pulse Rate 90 88 76 Respiratory Rate 16 20 18 Blood Pressure 118/65 124/63 111/70 Pulse Oximetry 94 100 100 Oxygen Delivery Method Room Air Room Air Room Air MDM - Chest Pain Lab Data 06/22/23 16:55 06/22/23 16:55 Labs: Lab Results 06/22/23 Range/Units 16:55 WBC 7.2 (4.5-11.0) X10^3/uL RBC 4.91 (4.0-5.2) X10^6/uL Hgb 12.2 (12.0-16.0) g/dL Hct 37.1 (36-46) % MCV 75.7 L (80-100) fL MCH 24.9 L (26-34) PG MCHC 32.9 (30-36) % RDW 16.9 H (11.6-14.8) % Plt Count 326 (150-400) X10^3/uL Neut % (Auto) 65.1 (50-75) % Lymph % (Auto) 25.5 (25-40) % [place] % (Auto) 7.4 (3-14) % Eos % (Auto) 1.1 L (2-4) % Baso % (Auto) 0.9 (0-2) % Neut # (Auto) 4700 (8412-9994) /uL Lymph # (Auto) 1800 (2420-3989) /uL [place] # (Auto) 500 (0-900) /uL Eos # (Auto) 100 (0-450) /uL Baso # (Auto) 100 (0-100) /uL PT 12.4 (10.1-12.7) SECONDS INR 1.1 (0.9-1.3) APTT 27 (26-36) SECONDS D-Dimer 345 (<500) ng/ml Sodium 138 (137-145) mmol/L Potassium 3.9 (3.4-5.1) mmol/L Chloride 105 (98-107) mmol/L Carbon Dioxide 24 (22-32) mmol/L BUN 12 (7-17) mg/dL Creatinine 0.60 (0.52-1.04) mg/dL Estimated GFR > 60 (>60) mL/min BUN/Creatinine Ratio 20.0 (6-22) Glucose 92 (70-100) mg/dL Calcium 9.5 (8.4-10.2) mg/dL Magnesium 2.2 (1.6-2.3) mg/dL Total Bilirubin 0.6 (0.2-1.3) mg/dL AST 20 (14-36) IU/L ALT 15 (<35) IU/L Alkaline Phosphatase 46 (38-126) U/L Total Creatine Kinase 46 (30-135) U/L Troponin I < 0.012 (0.01-0.034) ng/mL Total Protein 7.9 (6.3-8.2) g/dL Albumin 4.7 (3.5-5.0) g/dL Globulin 3.2 (1.7-4.1) g/dL Albumin/Globulin Ratio 1.5 (1.0-2.8) Lipase 76 (23-300) U/L Point of Care Testing Test Results Negative Urine Dip Bedside Urine Glucose Negative Bedside Urine Bilirubin - Negative Bedside Urine Ketone - Negative Urine Specific [place] 1.020 Bedside Urine Occult Blood - Negative Bedside Urine pH 6.0 Bedside Urine Protein - Negative Bedside Urine Urobilinogen - Negative Bedside Urine Nitrite - Negative Bedside Urine Leukocytes - Negative Esterase MDM Narrative Medical decision making narrative: [23] year old patient presents with brief episode of chest pain now resolved, lower abdominal discomfort now resolved Multiple etiologies for patient's symptoms considered including, but not limited to: [Cardiac ischemia versus pulmonary embolism versus other tachyarrhythmia versus reflux versus pancreatitis versus UTI versus bowel obstruction versus other] Prior Charts reviewed in our EMR Primary Historian: patient Labs reviewed and interpreted by myself: No leukocytosis or left shift, no signs of anemia, D-dimer below cutoff, electrolytes, lipase, LFTs within normal Imaging reviewed: No acute process on imaging Patient's history and physical exam reassuring. Multiple diagnoses considered as noted above however history, physical, labs, EKG and imaging sufficient to rule out the majority. Cardiac ischemia thought to be extremely unlikely given lack of exertional symptoms, associated cardiac equivalent such as dizziness, weakness or lightheadedness, exercise intolerance, ischemic EKG, troponin is negative, low heart score. Pulmonary embolism considered after evaluating wells and PERC score, D-dimer ordered which is below cutoff. Other diagnoses such as esophageal spasm and reflux thought most likely. Lower abdominal discomfort was very episodic and without obvious provocation or palliation. Patient is asymptomatic for duration of visit, labs unremarkable, urine clean. We did discuss the possible use of advanced imaging but sure the opinion that given her lack of symptoms and reassuring labs that it is unlikely to produce a significant diagnosis that would require a specific or immediate intervention at this time. Return precautions discussed and questions answered to her apparent satisfaction Patient's symptoms improved over duration of stay with above-stated therapies. Findings and discharge diagnosis discussed with patient/family followed by verbalization of understanding Return precautions discussed with patient/family whom verbalize understanding of diagnosis and plan Discharge Plan Departure Patient Disposition: Home Clinical Impression: Atypical chest pain Instructions: DI for Atypical Chest Pain Activity Restrictions/Additional Instructions: *You have been diagnosed with [atypical chest pain. As we discussed your history and physical exam are reassuring. There is no indication for heart attack or blood clot. Your labs are reassuring and do not show any signs of infection such as urine or other.] *What to do: *Please continue to take your regular medications as directed. [ ] New medication prescriptions sent to your pharmacy: [ ] [ ] New medication written as a paper prescription [ ] No new medications given *Please follow up with your primary care provider in 2-3 days, call for an appointment. Let them know you were seen in the Emergency Department and that we ask that you be seen in follow up. We will electronically transmit a record of today's note if your PCP is in our system *If you do not have a primary care provider please contact the [facility] Resource line at [phone]. They will ask some questions about your medical history and help get you set up with a doctor in the community. *Return to Emergency Department if you should have any new, worsening or concerning symptoms, such as [fever greater than 101 F, shaking chills, worsening pain, persistent vomiting or other bothersome symptoms] Prescriptions: No Action naproxen 500 mg Tablet 500 mg Q8HR ondansetron 4 mg tablet,disintegrating 4 mg PO BID hydrocodone-acetaminophen 5-325 mg tablet 1 tab PO Q8H PRN (Reason: pain) Qty: 10 0RF Referrals: Miscellaneous,Doctor, MD [Primary Care Provider] - Stand Alone Forms: Patient Portal/API
[2023-06-22 19:38] VITALS: BP 124/63; PULSE 88; RESP 20; O2SAT 100
[2023-06-22 20:29] LABS: D Dimer 345 ng/ml (<500)
[2023-06-22 20:38] VITALS: BP 111/70; PULSE 76; RESP 18; O2SAT 100
== END 2023-06-22 20:44 | disposition home or self-care (01) ==
PROVIDERS: Emergency Medicine; Emergency Provider Emergency Medicine
DX: R07.89 Other chest pain (principal)
CPT/HCPCS: 36415; 71045; 80053; 81003; 81025; 82550; 83690; 83735; 84484; 85025; 85379; 85610; 85730; 93005; 99283; 99284

== ENCOUNTER 2024-01-30 00:23 | Emergency (ER) | payer OTHER, SELFPAY ==
[2023-04-27 20:25] VITALS: BMI 21.7
[2024-01-30 00:33] VITALS: BP 120/75; PULSE 77; RESP 15; TEMP 36.5; O2SAT 99; BMI 26.6
--- NOTE | 2024-01-30 00:41 | DI.RAD.S_ITS ---
PROCEDURE: XR ANKLE RT MIN 3V INDICATIONS: right ankle pain TECHNIQUE: 3 views of the ankle were acquired. COMPARISON: [facility], , XR FOOT RT MIN 3V, 01/30/2024, 0:41. FINDINGS: Bones: No fractures or dislocations. Ankle mortise is normally aligned. No suspicious bony lesions. Soft tissues: No tibiotalar joint effusion. Achilles tendon appears normal. No radiopaque foreign body. IMPRESSION: No fracture. No radiopaque foreign body. Dictated by: Chris Barth M.D. on 01/30/2024 at 1:06 Approved by: Chris Barth M.D. on 01/30/2024 at 1:07
--- NOTE | 2024-01-30 00:41 | DI.RAD.S_ITS ---
PROCEDURE: XR FOOT RT MIN 3V INDICATIONS: Right foot pain TECHNIQUE: 3 views of the foot were acquired. COMPARISON: [facility], CR, XR ANKLE RT MIN 3V, 01/30/2024, 0:41. FINDINGS: Bones: No fractures or dislocations. No suspicious bony lesions. Soft tissues: No tibiotalar joint effusion. Achilles tendon appears normal. IMPRESSION: No acute bony abnormality. Dictated by: Chris Barth M.D. on 01/30/2024 at 1:06 Approved by: Chris Barth M.D. on 01/30/2024 at 1:06
[2024-01-30 02:40] VITALS: BP 128/77; RESP 18; TEMP 36.7
--- NOTE | 2024-01-30 04:21 | ED_ITS ---
HPI - Extremity Problem General Chief complaint: Extremity Problem,Nontraumatic Stated complaint: rt ankle pain and swollen black and blue Time Seen by Provider: 01/30/24 04:21 Source: patient Mode of arrival: Ambulatory History of Present Illness HPI Narrative: 23-year-old female with history of Raynaud's disease, frequent [id number]-[id number]-left cold feet more so than with hands, also skateboards frequently, believe she might have injured her right ankle recently, starting to have more pain to the ankle last few days, increasing cold sensation in right foot, as apparently happens after she injured her foot or ankle. Related Data Allergies Allergy/AdvReac Type Severity Reaction Status Date / Time No Known Drug Allergies Allergy Verified 05/26/23 10:57 Review of Systems Review of Systems ROS Unobtainable: All systems reviewed & are unremarkable except as noted in HPI and below Patient History Medical History Eczema (~2002) Chronic cough (~2017) Allergies (~2009) Anxiety (~2009) Migraines (~2015) ADHD (~2004) Fracture (~2013) Foot pain (~2013) Ankle pain (~2018) Raynaud's disease Optic nerve disorder Glaucoma (~2007) Painful menstrual periods (~2010) Heavy menstrual period (~2010) Gallstones Heart murmur Healthy adult Surgical History Hx laparoscopic cholecystectomy Family History Grandmother Breast cancer Social History household members: significant other lives independently: Yes Smoking Status: Current every day smoker alcohol intake: never Smoking Status: Current every day smoker tobacco type: vaping alcohol intake frequency: holidays/special occasions only Alcohol type: other Substance Use Type: marijuana Exam Initial Vital Signs Initial Vital Signs: Vital Signs Temperature 97.7 F 01/30/24 00:33 Pulse Rate 77 01/30/24 00:33 Respiratory Rate 15 01/30/24 00:33 Blood Pressure 120/75 01/30/24 00:33 Pulse Oximetry 99 01/30/24 00:33 Oxygen Delivery Method Room Air 01/30/24 00:33 Const General: cooperative HENMT Head: normocephalic and atraumatic Nose: external nose normal Face and sinus: face symmetric Mouth: oral mucosae normal and moist mucous membranes Throat: tonsils normal Eyes Eyelids: eyelids normal Conjunctivae: conjunctivae normal Sclera: sclerae normal Pupils: PERRL EOM: EOM intact bilaterally Neck Neck: normal visual inspection and trachea midline Resp Effort & Inspection: normal respiratory effort, able to speak in complete sentences, no respiratory distress and no use of accessory muscles Auscultation: clear to auscultation bilaterally, no rales, no rhonchi and no wheezes Cardio Rate: regular rate Rhythm: regular rhythm Heart Sounds: no gallops GI Inspection: non-distended Palpation: soft and No tender Back/Spine/Pelvis Back: No CVA tenderness Skin General: No jaundice and No petechiae Neuro General: no focal motor deficits Speech: speech normal Extrem Other: Right foot and ankle with no gross deformity, cold to touch, but with palpable bounding dorsalis pedis pulse, left foot also cold but less so than right, apparently this is chronic for the patient with Raynaud's. Some tenderness to medial and lateral right ankle joint line, none at dorsum of foot or along lateral foot, no tenderness base of 5th metatarsal, no skin ulcerations, no cyan otic appearing toes, no abrasions, no punctures. Psych Mental Status: mental status grossly normal Attitude: cooperative Course Orders Ordered: Discontinued Medications Tramadol HCl (Tramadol 50 Mg Prepack) 1 bottle MISC DIRECTED ONE Stop: 01/30/24 05:47 Last Admin: 01/30/24 05:51 Dose: 1 bottle Documented By: APRIL Vital Signs Vital signs: Vital Signs - 8 hr 01/30/24 00:33 01/30/24 02:40 Temperature 97.7 F 98.0 F Pulse Rate 77 Respiratory Rate 15 18 Blood Pressure 120/75 128/77 Pulse Oximetry 99 Oxygen Delivery Method Room Air MDM - Extremity (Nontraumatic) MDM Narrative Medical decision making narrative: Right ankle and foot pain, history of Raynaud's disease, baseline pallor and cold sensation worse on the right than the left foot, colder on the right versus left tonight as well, but with bounding dorsalis pedis pulse, tenderness to ankle area. Seems consistent with her report that she has worse Raynaud's problems after an injury to the ankle or foot on the affected side. Possible ankle strain from her frequent skateboarding activities, causing ipsilateral exacerbation of Raynaud's vasoconstriction phenomenon. The limb does not look ischemic/cyanotic at present. X-rays right foot and ankle without obvious injuries. Discussed nonweightbearing versus weight-bearing, air stirrup versus ortho boot versus posterior splint. Patient declines nonweightbearing status at present, but would be interested in trying ortho boot. Applied for discharge. Follow up with PCP if not improved in the next couple of days. Return to this/nearest emergency department for any change worsening symptoms or any concerns prior Discharge Plan Departure Patient Disposition: Home Clinical Impression: Right ankle strain, Raynaud's disease Instructions: DI for Ankle Sprain Activity Restrictions/Additional Instructions: Regular skateboarding activities, possible strain to the right ankle, with exacerbation of Raynaud's on that side. Apparently this is typical for you to have worse Raynaud's symptoms after an injury on your feet. There was some increased cold sensation on the right compared to the left, but excellent dorsalis pedis dorsal foot pulse. Ortho boot applied for additional ankle foot support, and also some degree of covering and warmth compared to an airstirrup only. Recheck symptoms with your regular provider next couple of days. Return to emergency department for any change worsening symptoms or any concerns prior Referrals: Miscellaneous,Doctor, [Primary Care Provider] - Stand Alone Forms: Patient Portal/API
[2024-01-30] MEDS: TRAMADOL 50 MG PREPACK 1 BOTTLE MISC (05:51)
[2024-01-30 06:00] VITALS: BP 121/73; PULSE 76; RESP 16; O2SAT 98
== END 2024-01-30 06:02 | disposition home or self-care (01) ==
PROVIDERS: Emergency Provider Emergency Medicine
DX: S96.911A Strain of unspecified muscle and tendon at ankle and foot level, right foot, initial encounter (principal); I73.00 Raynaud's syndrome without gangrene; X58.XXXA Exposure to other specified factors, initial encounter
CPT/HCPCS: 73610; 73630; 99281; 99283

== ENCOUNTER → 2024-02-08 17:30 | Outpatient (CLI) | payer OTHER, SELFPAY ==
[2023-04-27 20:25] VITALS: BMI 21.7
--- NOTE | 2024-02-08 17:31 | DI.RAD.S_ITS ---
PROCEDURE: XR ANKLE RT MIN 3V INDICATIONS: Re-evaluation of right ankle, persistent pain TECHNIQUE: 3 views of the ankle were acquired. COMPARISON: [facility], CR, XR ANKLE RT MIN 3V, 01/30/2024, 0:41. FINDINGS: Bones: No fractures or dislocations. Ankle mortise is normally aligned. No suspicious bony lesions. Soft tissues: No tibiotalar joint effusion. Achilles tendon appears normal. IMPRESSION: No acute osseous abnormality. MRI could be considered for further evaluation. Dictated by: Chris Barth M.D. on 02/08/2024 at 18:18 Approved by: Chris Barth M.D. on 02/08/2024 at 18:19
--- NOTE | 2024-02-08 17:31 | DI.RAD.S_ITS ---
PROCEDURE: XR FOOT RT MIN 3V INDICATIONS: Foot and ankle pain, may combine study if able TECHNIQUE: 3 views of the foot were acquired. COMPARISON: [facility], CR, XR ANKLE RT MIN 3V, 02/08/2024, 17:30. [facility], CR, XR FOOT RT MIN 3V, 01/30/2024, 0:41. FINDINGS: Bones: No fractures or dislocations. No suspicious bony lesions. Soft tissues: No tibiotalar joint effusion. Achilles tendon appears normal. No radiopaque foreign body. IMPRESSION: No acute bony abnormality identified. MRI could be considered for further evaluation if clinically indicated. Dictated by: Chris Barth M.D. on 02/08/2024 at 18:19 Approved by: Chris Barth M.D. on 02/08/2024 at 18:21
== END ==
PROVIDERS: Referring Provider Physician Assistant Surgical; Visit Provider Physician Assistant Surgical
DX: S96.911A Strain of unspecified muscle and tendon at ankle and foot level, right foot, initial encounter (principal); S99.921A Unspecified injury of right foot, initial encounter; X58.XXXA Exposure to other specified factors, initial encounter
CPT/HCPCS: 73610; 73630

== ENCOUNTER 2024-05-03 12:48 | Emergency (ER) | payer OTHER, SELFPAY ==
[2023-04-27 20:25] VITALS: BMI 21.7
[2024-05-03 12:57] VITALS: BP 132/65; PULSE 99; RESP 16; TEMP 36.9; O2SAT 96; BMI 28.2
[2024-05-03 14:19] LABS: Appearance Urine UA CLOUDY; Bilirubin Urine UA NEGATIVE (NEGATIVE); Color Urine UA YELLOW; Glucose Urine UA NEGATIVE (Negative); Ketones Urine UA NEGATIVE (NEGATIVE); Leukocyte Esterase Urine UA NEGATIVE (NEGATIVE); Nitrite Urine UA NEGATIVE (Negative); Occult Blood Urine UA TRACE-INTACT (Negative); Protein Urine UA 1+ (Negative); Specific Gravity Urine UA 1.015 (1.000-1.035)
[2024-05-03 14:21] LABS: pH Urine UA 7.5 (4.5-8.0)
[2024-05-03 14:27] LABS: Add Manual Diff / Slide Review NO; Basophils Absolute Auto 100 /uL (0-100); Basophils Percent Auto 0.8 % (0-2); Eosinophils Absolute Auto 100 /uL (0-450); Eosinophils Percent Auto 0.4 % (2-4); Hematocrit 39.5 % (36-46); Hemoglobin 12.8 g/dL (12.0-16.0); Lymphocytes Absolute Auto 1800 /uL (1100-4500); Lymphocytes Percent Auto 11.8 % (25-40); Mean Corpuscular HGB Conc 32.3 % (30-36); Mean Corpuscular Hemoglobin 25.8 PG (26-34); Mean Corpuscular Volume 79.9 fL (80-100); Monocytes Absolute Auto 800 /uL (0-900); Monocytes Percent Auto 5.6 % (3-14); Neutrophils Absolute Auto 12100 /uL (1500-7000); Neutrophils Percent Auto 81.4 % (50-75); Platelet Count 382 X10^3/uL (150-400); Red Blood Cell Count 4.95 X10^6/uL (4.0-5.2); Red Cell Distribution Width 16.7 % (11.6-14.8); White Blood Cell Count 14.8 X10^3/uL (4.5-11.0)
[2024-05-03 14:40] LABS: Bacteria Urine Many (>30); Culture Indicated Urine Cult Not Indicated; Mucus Urine 2+ (Negative); Pregnancy Test Urine Negative (Negative); RBC Urine None Seen (0-5/HPF); Squamous Epithelial Cell Urine 10-30 /HPF (0-5/HPF); Urine Volume Low Vol <10mL (spun); WBC Urine 1-5/HPF (0-5/HPF)
--- NOTE | 2024-05-03 15:04 | ED.GENADULT ---
HPI - General Adult General Chief complaint: Abdominal Pain Stated complaint: R side abd pain, L leg numbness Time Seen by Provider: 05/03/24 13:52 Source: patient Mode of arrival: Ambulatory History of Present Illness HPI narrative: Patient is a 24-year-old female here for evaluation of right lower quadrant and periumbilical abdominal discomfort. States his symptoms started at approximately 1130 today although last evening she was having some lower back discomfort. Denies urinary issues. No change in bowel habits. No vaginal bleeding. No vomiting. No fevers. Has not tried anything for symptoms prior to arrival. Related Data Home Medications Medication Instructions Recorded Confirmed No Known Home Medications 02/08/24 02/08/24 Allergies Allergy/AdvReac Type Severity Reaction Status Date / Time No Known Drug Allergies Allergy Verified 05/03/24 12:57 Review of Systems Review of Systems ROS Unobtainable: All systems reviewed & are unremarkable except as noted in HPI and below Patient History Medical History Eczema (~2002) Chronic cough (~2017) Allergies (~2009) Anxiety (~2009) Migraines (~2015) ADHD (~2004) Fracture (~2013) Foot pain (~2013) Ankle pain (~2018) Raynaud's disease Optic nerve disorder Glaucoma (~2007) Painful menstrual periods (~2010) Heavy menstrual period (~2010) Gallstones Heart murmur Healthy adult Surgical History Hx laparoscopic cholecystectomy Family History Grandmother Breast cancer Social History household members: significant other lives independently: Yes Smoking Status: Current every day smoker alcohol intake: never Smoking Status: Current every day smoker tobacco type: vaping alcohol intake frequency: 3 or more drinks per day Alcohol type: other Substance Use Type: marijuana Exam Initial Vital Signs Initial Vital Signs: Vital Signs Temperature 98.4 F 05/03/24 12:57 Pulse Rate 99 H 05/03/24 12:57 Respiratory Rate 16 05/03/24 12:57 Blood Pressure 132/65 05/03/24 12:57 Pulse Oximetry 96 05/03/24 12:57 Oxygen Delivery Method Room Air 05/03/24 12:57 Const General: cooperative, comfortable and No ill appearing [facility] Head: normal to inspection and normocephalic Resp Effort & Inspection: normal respiratory effort Auscultation: clear to auscultation bilaterally Cardio Rate: regular rate Rhythm: regular rhythm GI Inspection: normal to inspection and non-distended Skin General: no rashes or lesions noted Neuro General: patient alert, patient awake and moves all extremities Extrem General: normal to inspection and capillary refill normal Course Orders Ordered: ED Orders 05/03/24 13:02 Test Urine Stat Urinalysis and Microscopic Stat 05/03/24 14:19 Complete Blood Count AUTO DIFF Stat Comprehensive Metabolic Panel Stat Lipase Stat 05/03/24 15:03 CT abdomen pelvis w con Stat Discontinued Medications Ondansetron HCl (Ondansetron 4 Mg/2 Ml Inj) 4 mg IV NOW PRN PRN Reason: Nausea And Vomiting Ondansetron HCl (Ondansetron 4 Mg Odt) 4 mg PO NOW PRN PRN Reason: Nausea And Vomiting Vital Signs Vital signs: Vital Signs - 8 hr 05/03/24 12:57 05/03/24 16:10 Temperature 98.4 F Pulse Rate 99 H 84 Respiratory Rate 16 16 Blood Pressure 132/65 125/88 Pulse Oximetry 96 98 Oxygen Delivery Method Room Air Room Air Medical Decision Making Lab Data Lab results reviewed: Yes I reviewed the patient's lab results. 05/03/24 14:19 05/03/24 14:19 Labs: Lab Results 05/03/24 05/03/24 Range/Units 13:02 14:19 WBC 14.8 H (4.5-11.0) X10^3/uL RBC 4.95 (4.0-5.2) X10^6/uL Hgb 12.8 (12.0-16.0) g/dL Hct 39.5 (36-46) % MCV 79.9 L (80-100) fL MCH 25.8 L (26-34) PG MCHC 32.3 (30-36) % RDW 16.7 H (11.6-14.8) % Plt Count 382 (150-400) X10^3/uL Neut % (Auto) 81.4 H (50-75) % Lymph % (Auto) 11.8 L (25-40) % Wagoner % (Auto) 5.6 (3-14) % Eos % (Auto) 0.4 L (2-4) % Baso % (Auto) 0.8 (0-2) % Neut # (Auto) 39992 H (3487-8352) /uL Lymph # (Auto) 1800 (1378-4489) /uL Wagoner # (Auto) 800 (0-900) /uL Eos # (Auto) 100 (0-450) /uL Baso # (Auto) 100 (0-100) /uL Sodium 137 (137-145) mmol/L Potassium 4.3 (3.4-5.1) mmol/L Chloride 104 (98-107) mmol/L Carbon Dioxide 22 (22-32) mmol/L BUN 11 (7-17) mg/dL Creatinine 0.67 (0.52-1.04) mg/dL Estimated GFR > 60 (>60) mL/min BUN/Creatinine Ratio 16.4 (6-22) Glucose 104 H (70-100) mg/dL Calcium 9.5 (8.4-10.2) mg/dL Total Bilirubin 0.9 (0.2-1.3) mg/dL AST 28 (14-36) IU/L ALT 25 (<35) IU/L Alkaline Phosphatase 95 (38-126) U/L Total Protein 7.9 (6.3-8.2) g/dL Albumin 4.7 (3.5-5.0) g/dL Globulin 3.2 (1.7-4.1) g/dL Albumin/Globulin Ratio 1.5 (1.0-2.8) Lipase 82 (23-300) U/L Urine Color Yellow Urine Appearance Cloudy Urine pH 7.5 (4.5-8.0) Ur Specific Hensley 1.015 (1.000-1.035) Urine Protein 1+ H (Negative) Urine Glucose (UA) Negative (Negative) g/dL Urine Ketones Negative (NEGATIVE) Urine Occult Blood Trace-intact (Negative) Urine Nitrate Negative (Negative) Urine Bilirubin Negative (NEGATIVE) Urine Urobilinogen 1.0 (0.2) E.U./dL Ur Leukocyte Esterase Negative (NEGATIVE) Urine RBC None seen (0-5/HPF) Urine WBC 1-5/hpf (0-5/HPF) Ur Squamous Epith Cells 10-30 /hpf H (0-5/HPF) Urine Bacteria Many (>30) H (None) Urine Mucus 2+ H (Negative) Ur Culture Indicated? Cult not indicated Vol Urine Centrifuged Low vol <10ml (spun) A Urine Test Negative (Negative) Imaging Data CT scan - abdomen/pelvis: Radiologist's Impression: PROCEDURE: CT ABDOMEN PELVIS W CON INDICATIONS: RLQ abd pain eval for Appy TECHNIQUE: After the administration of intravenous contrast, axial sections acquired from the lung bases to the pubic symphysis. Coronal and sagittal reformats were performed. For radiation dose reduction, the following was used: automated exposure control, adjustment of mA and/or kV according to patient size. COMPARISON: [facility], CT, CT ABDOMEN PELVIS W CON, 05/20/2023, 21:23. FINDINGS: Image quality: Diagnostic. Lower Chest: No significant findings. ABDOMEN: Liver: No solid mass. Gallbladder: Surgically absent. Biliary ducts: No biliary dilation. Pancreas: No ductal dilation. Spleen: Size is within normal limits. Adrenal Glands: No adrenal nodules. Kidneys and Ureters: No hydronephrosis. No solid mass. No complex renal cystic lesion which requires follow up. Stomach and Bowel: Normal colonic caliber, without significant wall thickening. Appendix not identified. Peritoneum: No abnormal intraperitoneal fluid. No free air. Ventral Wall: No significant ventral hernia. Abdominal Nodes: No retroperitoneal or mesenteric adenopathy by size criteria. Somewhat prominent right lower quadrant lymph nodes may potentially represent mesenteric adenitis. Vessels: Aorta and inferior vena cava are normal in size. PELVIS: Pelvic Organs: Bilateral cystic adnexae.. Bladder: No bladder wall thickening, accounting for underdistention. Pelvic Nodes: No enlarged lymph nodes. Miscellaneous: No inguinal hernias are seen. Bones: No aggressive osseous abnormality. IMPRESSION: 1. Appendix not visualized. 2. Right lower quadrant lymph nodes which are prominent may potentially suggest mesenteric adenitis. 3. Bilateral cystic adnexae. 4. No acute abdominal process identified. 5. Remote cholecystectomy. MDM Narrative Medical decision making narrative: Patient does have a leukocytosis. Urinalysis does have white blood cells and bacteria but also quite a bit of epi cells. She does not have any urinary tract infection like symptoms. We will wait on the culture results before starting on any antibiotics. CT scan of the abdomen shows mesenteric adenopathy. The appendix is not visualized. I did discuss this with her. Informed her that this is most likely because the appendix is small and not inflamed although we can not definitively say that she does not have appendicitis. We will hold on any antibiotics for now. Will discharge patient home with strict return precautions. Patient expressed understanding and agreement with plan. Discharge Plan Departure Patient Disposition: Home Clinical Impression: Mesenteric adenitis, Abdominal pain Instructions: DI for Abdominal Pain-Adult Activity Restrictions/Additional Instructions: There was a urine culture pending at the time of your discharge and we will contact you if we need to start any antibiotics based on this. Contact your primary care doctor for a follow-up. Return to the emergency department for new or worsening symptoms. Prescriptions: No Action No Known Home Medications Referrals: Miscellaneous,Doctor MD [Primary Care Provider] - Stand Alone Forms: Patient Portal/API
[2024-05-03 15:05] LABS: Alanine Aminotransferase 25 IU/L (<35); Albumin 4.7 g/dL (3.5-5.0); Albumin Globulin Ratio 1.5 (1.0-2.8); Alkaline Phosphatase 95 U/L (38-126); Aspartate Aminotransferase 28 IU/L (14-36); BUN Creatinine Ratio 16.4 (6-22); Bilirubin Total 0.9 mg/dL (0.2-1.3); Blood Urea Nitrogen 11 mg/dL (7-17); Calcium 9.5 mg/dL (8.4-10.2); Carbon Dioxide 22 mmol/L (22-32); Chloride 104 mmol/L (98-107); Estimated Glomerular Filt Rate > 60 mL/min (>60); Globulin 3.2 g/dL (1.7-4.1); Glucose 104 mg/dL (70-100); HEMOLYSIS < 15 (0-50); Lipase 82 U/L (23-300); Potassium 4.3 mmol/L (3.4-5.1); Sodium 137 mmol/L (137-145); Total Protein 7.9 g/dL (6.3-8.2)
[2024-05-03 16:10] VITALS: BP 125/88; PULSE 84; RESP 16; O2SAT 98
== END 2024-05-03 16:11 | disposition home or self-care (01) ==
PROVIDERS: Emergency Provider Emergency Medicine
DX: I88.0 Nonspecific mesenteric lymphadenitis (principal); R10.31 Right lower quadrant pain; M54.50 Low back pain, unspecified
CPT/HCPCS: 36415; 74177; 80053; 81001; 81025; 83690; 85025; 99283; 99284; Q9967

== ENCOUNTER → 2024-12-10 18:21 | Outpatient (CLI) | payer OTHER, SELFPAY ==
[2023-04-27 20:25] VITALS: BMI 21.7
[2024-12-10 21:01] LABS: Influenza A - CEPHEID Flu A NEGATIVE (NEGATIVE); Influenza B - CEPHEID Flu B POSITIVE (NEGATIVE); Respiratory Syncytial Virus Negative (Negative)
[2024-12-10 21:14] LABS: COVID-19 CEPHEID 4-PLEX PCR Negative (Negative)
== END ==
PROVIDERS: Visit Provider Nurse Practitioner Family
DX: R05.1 Acute cough (principal); J02.9 Acute pharyngitis, unspecified
CPT/HCPCS: 0241U; 87070; 87077; 87147